=== PATIENT | male | born 1945 | race Caucasian/White ===

== ENCOUNTER → 2018-04-09 09:22 | Outpatient (CLI) | payer MEDICARE, OTHER, SELFPAY ==
[2018-04-09 11:09] LABS: Blood Urea Nitrogen 24 mg/dL (9-20); Calcium 9.5 mg/dL (8.4-10.2); Carbon Dioxide 28 mmol/L (22-32); Chloride 105 mmol/L (98-107); Estimated Glomerular Filt Rate 59.3 mL/min (>60); Glucose 72 mg/dL (80-110); HEMOLYSIS < 15 (0-50); Potassium 4.7 mmol/L (3.4-5.1); Sodium 143 mmol/L (137-145)
== END ==
PROVIDERS: PCP Internal Medicine; Visit Provider Internal Medicine
DX: Z00.00 Encounter for general adult medical examination without abnormal findings (principal); N40.1 Benign prostatic hyperplasia with lower urinary tract symptoms
CPT/HCPCS: 36415; 80048; G0103

== ENCOUNTER 2019-06-11 15:30 | Emergency (ER) | payer MEDICARE, OTHER, SELFPAY ==
[2019-06-11 15:42] VITALS: BP 132/71; PULSE 110; RESP 16; TEMP 37.1; O2SAT 98; BMI 23.6
--- NOTE | 2019-06-11 17:12 | ED.WOUNDLAC ---
HPI - Wound/Laceration <Mary Lang PA-C - Last Filed: 06/11/19 20:48> General Chief Complaint: Wound/Laceration Stated Complaint: CUT FINGERS RIGHT SIDE Time Seen by Provider: 06/11/19 16:46 Source: patient Mode of arrival: Ambulatory Limitations: no limitations History of Present Illness HPI narrative: This 73-year-old gentleman states that he slipped getting out of his truck earlier and pitched forward, trying to avoid hitting his head or face, he caught his fingers and scraped his leg he thinks on the metal guide of his trailer (sheet metal), cutting his arm and fingers, also has a scrape on the right leg. He states he fell on his hands, legs and elbows, came in to have the wounds looked at. He denies any head contusion, LOC, neck pain. He denies any difficulty walking, pain in his legs. He states he has not felt any weakness or pain with moving the fingers and thinks the wounds are superficial. He states he has had a tetanus vaccine in the last 5 years. Review of Systems <Mary Lang PA-C - Last Filed: 06/11/19 20:48> Review of Systems ROS Unobtainable: All systems reviewed & are unremarkable except as noted in HPI and below Patient History <Mary Lang PA-C - Last Filed: 06/11/19 20:48> Medical History (Updated 06/11/19 @ 17:42 by Mary Lang PA-C) No chronic problems (Chronic) Surgical History (Updated 06/11/19 @ 17:37 by Mary Lang PA-C) Status post debridement of bone spur (Resolved) Status post hernia repair (Resolved) Social History Smoking Status: Never smoker Smoking Status: Never smoker alcohol intake frequency: holidays/special occasions only Substance Use Type: does not use Exam <Mary Lang PA-C - Last Filed: 06/11/19 20:48> Narrative Exam Narrative: GENERAL APPEARANCE: Patient sitting comfortably, in no distress. LUNGS: Clear to auscultation bilaterally. HEART: Rate and rhythm regular without murmur, normal S1 and S2, no S3 or S4. DERMATOLOGIC: Right 5th finger tip there is superficial skin maceration in the midline, with small avulsion. Nail appears intact. No active bleeding. Right 4th finger on the border there is a curvilinear 5-6 mm avulsion with a flap, no gap, bleeds minimally when dressing is removed. There are small nonbleeding avulsions on the left hand dorsum and near the left elbow. There are some nonbleeding scabs on the left arias. Wounds cleaned and dressed per nursing MUSCULOSKELETAL: No tenderness over the cervical spine, full range of motion. Normal seated trunk flexion. Full range of motion of right hand fingers, capacity planning manager intact. No tenderness over the right wrist or fingers NEUROLOGIC: Patient is alert and oriented with normal speech and coordination, normal gait Initial Vital Signs Initial Vital Signs: Vital Signs Temperature 98.7 F 06/11/19 15:42 Pulse Rate 110 H 06/11/19 15:42 Respiratory Rate 16 06/11/19 15:42 Blood Pressure 132/71 06/11/19 15:42 Pulse Oximetry 98 06/11/19 15:42 <DO Charisse Crocker Last Filed: 06/11/19 21:04> Initial Vital Signs Initial Vital Signs: Vital Signs Temperature 98.7 F 06/11/19 15:42 Pulse Rate 110 H 06/11/19 15:42 Respiratory Rate 16 06/11/19 15:42 Blood Pressure 132/71 06/11/19 15:42 Pulse Oximetry 98 06/11/19 15:42 Course <Mary Lang PA-C - Last Filed: 06/11/19 20:48> Vital Signs Vital signs: Vital Signs - 8 hr 06/11/19 15:42 06/11/19 18:11 Temperature 98.7 F Pulse Rate 110 H 89 Respiratory Rate 16 16 Blood Pressure 132/71 128/79 Pulse Oximetry 98 98 <DO Charisse Crocker Last Filed: 06/11/19 21:04> Vital Signs Vital signs: Vital Signs - 8 hr 06/11/19 15:42 06/11/19 18:11 Temperature 98.7 F Pulse Rate 110 H 89 Respiratory Rate 16 16 Blood Pressure 132/71 128/79 Pulse Oximetry 98 98 Discharge Plan Departure Patient Disposition: Home Clinical Impression: Avulsion of skin Discharge Date/Time: 06/11/19 18:40 Instructions: DI for Avulsion Laceration (Not Requiring Sutures) Activity Restrictions/Additional Instructions: Please keep these wounds clean and dry. Use nonstick dressing directly on the wounds, then you can add more bulk with gauze or bandages to protect them. As we talked about, you should monitor for any signs of infection such as draining pus, redness, increasing pain, swelling or fever, and see your PCP or return here right away if any. Follow-up with your PCP next week if these wounds are not starting to heal as expected over the next few days. Thank you for your patience with our busy emergency department today Referrals: Walker Altamirano MD [Primary Care Provider] - <Primitivo Cuba, - Last Filed: 06/11/19 21:04> Sign Out Provider Sign Out Attestation: Dr Cuba Co-Sign Statement: I was available for consultation during this patient's emergency department visit. This chart is signed by myself for administrative purposes only. I did not have direct contact with this patient during this visit. They were seen independently by the APC.
[2019-06-11 18:11] VITALS: BP 128/79; PULSE 89; RESP 16; O2SAT 98
== END 2019-06-11 18:40 | disposition home or self-care (01) ==
PROVIDERS: Emergency Provider Internal Medicine; PCP Internal Medicine
DX: S61.316A Laceration without foreign body of right little finger with damage to nail, initial encounter (principal); W18.09XA Striking against other object with subsequent fall, initial encounter
CPT/HCPCS: 99282; 99284

== ENCOUNTER 2020-03-12 17:27 | Emergency (ER) | payer MEDICARE, OTHER, SELFPAY ==
[2020-03-12 17:34] VITALS: BP 161/73; PULSE 92; RESP 14; TEMP 36.5; O2SAT 99; BMI 21.4
--- NOTE | 2020-03-12 17:49 | ED.NEUROSD ---
HPI - Neuro Symptoms/Deficit <ROHAN Monte - Last Filed: 03/12/20 20:11> General Chief Complaint: Neuro Symptoms/Deficit Stated Complaint: Infection/psych/hallucinations Time Seen by Provider: 03/12/20 17:37 Source: patient Mode of arrival: Ambulatory Limitations: no limitations History of Present Illness HPI Narrative: 74yo male with a history of self-diagnosed Parkinson's disease, presents to the ED via EMS for confusion. EMS states that please were called to the house because patient was concerned that there was a transient that he let stay with him that would not come out of the room to eat or use the bathroom. When police arrived at the house, they explained to the patient that it was actually a pair of coveralls not present. Patient states ?I know they told me I was hallucinating and now that make sense but I can't believe that I thought it was a person ?. Patient denies taking any medications. He is alert and oriented to person, place, and time. Patient denies any pain, denies chest pain, shortness of breath, dizziness, fever, difficulty urinating, abdominal pain, nausea, vomiting, diarrhea, cough, or any other concerns. Related Data Allergies Allergy/AdvReac Type Severity Reaction Status Date / Time No Known Drug Allergies Allergy Verified 03/12/20 17:34 Review of Systems <ROHAN Monte - Last Filed: 03/12/20 20:11> Review of Systems Narrative: REVIEW OF SYSTEMS: GENERAL: Denies fever or chills. HENT: No head trauma. EYES: No loss of vision, double vision, eye pain, or irritation. CARDIOVASCULAR: No chest pain or syncope. RESPIRATORY: No shortness of breath or cough. GASTROINTESTINAL: No nausea, vomiting, diarrhea, or constipation. GENITOURINARY: No flank pain or dysuria. MUSCULOSKELETAL: No pain, weakness, or deformities. INTEGUMENTARY: No rash, lesions, or pruritus. NEURO: No numbness, tingling. Patient reports confusion, see HPI. PSYCH: No behavior or mood changes. Hallucinations reported by police, see HPI. Patient History <ROHAN Monte - Last Filed: 03/12/20 20:11> Medical History No chronic problems (Chronic) Surgical History Status post debridement of bone spur (Resolved) Status post hernia repair (Resolved) Social History Smoking Status: Never smoker Smoking Status: Never smoker alcohol intake frequency: holidays/special occasions only Substance Use Type: does not use Exam <ROHAN Monte - Last Filed: 03/12/20 20:11> Initial Vital Signs Initial Vital Signs: Vital Signs Temperature 97.7 F 03/12/20 17:34 Pulse Rate 92 H 03/12/20 17:34 Respiratory Rate 14 03/12/20 17:34 Blood Pressure 161/73 H 03/12/20 17:34 Pulse Oximetry 99 03/12/20 17:34 PHYSICAL EXAMINATION: GENERAL: Well groomed, alert, and cooperative. Answers questions promptly and appropriately. Vital signs noted. HENT: Normocephalic, atraumatic. Ear canals patent. Oral mucosa is pink and moist. EYES: PERRLA,conjunctiva pink, sclera white, no periorbital swelling. CHEST: Normal to inspection and without deformities. CARDIOVASCULAR: S1 and S2 sounds normal. Regular rate and rhythm, no murmurs, clicks, or bruits. RESPIRATORY: Normal respiratory rate, trachea midline, airway patent. No stridor, nasal flaring or accessory muscle use. Lungs are clear in all [place] without wheeze, rhonchi, or crackles. GASTROINTESTINAL: Bowel sounds normoactive. Abdomen is soft and non-tender. No organomegaly. MUSCULOSKELETAL: Normal gait and coordination. Equal tone and mass bilaterally. EXTREMITIES: CMS intact. Moves all extremities. SKIN: Warm, dry, soft, appropriate color for ethnicity. No lesions, rashes, or wounds. NEURO: Alert and Oriented X 3. Good coordination. No ataxia, or sensory deficits, or cognitive issues at this current time. PSYCH: Appropriate affect and mood. <Grey Leonardo DO - Last Filed: 03/13/20 01:56> Initial Vital Signs Initial Vital Signs: Vital Signs Temperature 97.7 F 03/12/20 17:34 Pulse Rate 92 H 03/12/20 17:34 Respiratory Rate 14 03/12/20 17:34 Blood Pressure 161/73 H 03/12/20 17:34 Pulse Oximetry 99 03/12/20 17:34 Course <Stefany LeongROHAN barboza - Last Filed: 03/12/20 20:11> Course Course Narrative: Patient continues to insert questions appropriately, son at bedside states father's acting normally. Patient was given 1 g of ceftriaxone in the emergency department to treat UTI. Continues to be awake and alert and oriented upon discharge. Orders Ordered: ED Orders 03/12/20 17:47 EKG-12 Lead Stat 03/12/20 17:50 Acetaminophen Stat Complete Blood Count AUTO DIFF Stat Comprehensive Metabolic Panel Stat Ethanol (ETOH) Stat Lactate (Lactic Acid) Stat Partial Thromboplastin Time Stat Prolactin Stat Prothrombin Time INR Stat Salicylate Stat Thyroid Stimulating Hormone Stat 03/12/20 17:54 Urinalysis and Microscopic Stat Urine Culture Stat Urine Drug Screen, Rapid Stat 03/12/20 18:14 XR chest 1V Stat Discontinued Medications Sodium Chloride (Normal Saline 0.9%) 1,000 mls @ 150 mls/hr IV CONT ZAINA Last Infusion: 03/12/20 19:32 Dose: 0 mls/hr Documented by: Admin: 03/12/20 17:53 Dose: 150 mls/hr Documented by: HUGH Ceftriaxone Sodium 1,000 mg/ (Dextrose) 50 mls @ 100 mls/hr IV NOW ONE Stop: 03/12/20 18:31 Last Admin: 03/12/20 18:44 Dose: Not Given Documented by: HUGH Ceftriaxone Sodium/Dextrose (Rocephin) 1 gm in 50 mls @ 100 mls/hr IV NOW ONE Stop: 03/12/20 19:12 Last Infusion: 03/12/20 19:32 Dose: 0 mls/hr Documented by: Admin: 03/12/20 18:46 Dose: 100 mls/hr Documented by: VIVEK Vital Signs Vital signs: Vital Signs - 8 hr 03/12/20 18:06 03/12/20 18:09 03/12/20 18:30 Pulse Rate 84 90 85 Respiratory Rate 17 20 20 Blood Pressure 169/70 H 153/70 H Pulse Oximetry 99 100 100 03/12/20 19:00 03/12/20 19:30 Pulse Rate 85 Respiratory Rate 17 Blood Pressure 164/78 H 156/73 H Pulse Oximetry 99 <DO Charisse Turner Last Filed: 03/13/20 01:56> Orders Ordered: ED Orders 03/12/20 17:47 EKG-12 Lead Stat 03/12/20 17:50 Acetaminophen Stat Complete Blood Count AUTO DIFF Stat Comprehensive Metabolic Panel Stat Ethanol (ETOH) Stat Lactate (Lactic Acid) Stat Partial Thromboplastin Time Stat Prolactin Stat Prothrombin Time INR Stat Salicylate Stat Thyroid Stimulating Hormone Stat 03/12/20 17:54 Urinalysis and Microscopic Stat Urine Culture Stat Urine Drug Screen, Rapid Stat 03/12/20 18:14 XR chest 1V Stat Discontinued Medications Sodium Chloride (Normal Saline 0.9%) 1,000 mls @ 150 mls/hr IV CONT ZAINA Last Infusion: 03/12/20 19:32 Dose: 0 mls/hr Documented by: Admin: 03/12/20 17:53 Dose: 150 mls/hr Documented by: HUGH Ceftriaxone Sodium 1,000 mg/ (Dextrose) 50 mls @ 100 mls/hr IV NOW ONE Stop: 03/12/20 18:31 Last Admin: 03/12/20 18:44 Dose: Not Given Documented by: HUGH Ceftriaxone Sodium/Dextrose (Rocephin) 1 gm in 50 mls @ 100 mls/hr IV NOW ONE Stop: 03/12/20 19:12 Last Infusion: 03/12/20 19:32 Dose: 0 mls/hr Documented by: Admin: 03/12/20 18:46 Dose: 100 mls/hr Documented by: VIVEK Vital Signs Vital signs: Vital Signs - 8 hr 03/12/20 18:06 03/12/20 18:09 03/12/20 18:30 Pulse Rate 84 90 85 Respiratory Rate 17 20 20 Blood Pressure 169/70 H 153/70 H Pulse Oximetry 99 100 100 03/12/20 19:00 03/12/20 19:30 Pulse Rate 85 Respiratory Rate 17 Blood Pressure 164/78 H 156/73 H Pulse Oximetry 99 MDM - Neuro Symptoms/Deficit <ROHAN Monte - Last Filed: 03/12/20 20:11> Medical Records Attestation: I reviewed the patient's medical records. Lab Data Attestation: I reviewed the patient's lab results. Result diagrams: 03/12/20 17:50 03/12/20 17:50 Labs: Lab Results 03/12/20 03/12/20 03/12/20 Range/Units 17:50 17:50 17:50 WBC 7.2 (4.5-11.0) X10^3/uL RBC 4.39 L (4.5-5.9) X10^6/uL Hgb 13.8 (13.5-17.5) g/dL Hct 40.0 L (41-53) % MCV 91.2 (80-100) fL MCH 31.4 (26-34) PG MCHC 34.4 (30-36) % RDW 13.3 (11.6-14.8) % Plt Count 193 (150-400) X10^3/uL Neut % (Auto) 78.0 H (50-75) % Lymph % (Auto) 17.2 L (25-40) % [place] % (Auto) 3.9 (3-14) % Eos % (Auto) 0.8 L (2-4) % Baso % (Auto) 0.1 (0-2) % Neut # (Auto) 5600 (9456-6373) /uL Lymph # (Auto) 1200 (9234-2476) /uL [place] # (Auto) 300 (0-900) /uL Eos # (Auto) 100 (0-450) /uL Baso # (Auto) 0 (0-100) /uL PT 12.0 (10.1-12.7) SECONDS INR 1.0 (0.9-1.3) APTT 34 (26.4-36.2) SECONDS Sodium 140 (137-145) mmol/L Potassium 4.0 (3.4-5.1) mmol/L Chloride 106 (98-107) mmol/L Carbon Dioxide 25 (22-32) mmol/L BUN 24 H (9-20) mg/dL Creatinine 1.11 (0.66-1.25) mg/dL Estimated GFR > 60.0 (>60) mL/min BUN/Creatinine Ratio 21.6 (6-22) Glucose 98 (80-110) mg/dL Lactate (0.7-2.1) mmol/L Calcium 9.3 (8.4-10.2) mg/dL Total Bilirubin 0.9 (0.2-1.3) mg/dL AST 32 (17-59) IU/L ALT 25 (<50) IU/L Alkaline Phosphatase 86 (38-126) U/L Total Protein 7.5 (6.3-8.2) g/dL Albumin 4.4 (3.5-5.0) g/dL Globulin 3.1 (1.7-4.1) g/dL Albumin/Globulin Ratio 1.4 (1.0-2.8) TSH (0.47-4.68) uIU/mL Prolactin 13.1 (3.7-17.9) ng/mL Urine Color Urine Appearance Urine pH (4.5-8.0) Ur Specific [place] (1.000-1.035) Urine Protein (Negative) Urine Glucose (UA) (Negative) g/dL Urine Ketones (NEGATIVE) Urine Occult Blood (Negative) Urine Nitrate (Negative) Urine Bilirubin (NEGATIVE) Urine Urobilinogen (0.2) E.U./dL Ur Leukocyte Esterase (NEGATIVE) Urine RBC (0-5/HPF) Urine WBC (0-5/HPF) Ur Squamous Epith Cells (0-5/HPF) Urine Bacteria (None) Ur Culture Indicated? Salicylates < 1.0 (<20) mg/dL U Opiates 300ng/mL cut (Negative) Ur Oxycodone Screen (Negative) Urine Methadone Screen (Negative) Acetaminophen < 10 L (10-30) ug/mL Ur Barbiturates Screen (Negative) U Tricyclic Antidepress (Negative) Ur Phencyclidine Scrn (Negative) Ur Amphetamines Screen (Negative) U Methamphetamines Scrn (Negative) Ur MDMA Scrn (Ecstasy) (Negative) U Benzodiazepines Scrn (Negative) Urine Cocaine Screen (Negative) U Marijuana (THC) Screen (Negative) Ethyl Alcohol < 10 ( - 10) mg/dL 03/12/20 03/12/20 03/12/20 Range/Units 17:50 17:50 17:54 WBC (4.5-11.0) X10^3/uL RBC (4.5-5.9) X10^6/uL Hgb (13.5-17.5) g/dL Hct (41-53) % MCV (80-100) fL MCH (26-34) PG MCHC (30-36) % RDW (11.6-14.8) % Plt Count (150-400) X10^3/uL Neut % (Auto) (50-75) % Lymph % (Auto) (25-40) % [place] % (Auto) (3-14) % Eos % (Auto) (2-4) % Baso % (Auto) (0-2) % Neut # (Auto) (9543-9611) /uL Lymph # (Auto) (8722-9964) /uL [place] # (Auto) (0-900) /uL Eos # (Auto) (0-450) /uL Baso # (Auto) (0-100) /uL PT (10.1-12.7) SECONDS INR (0.9-1.3) APTT (26.4-36.2) SECONDS Sodium (137-145) mmol/L Potassium (3.4-5.1) mmol/L Chloride (98-107) mmol/L Carbon Dioxide (22-32) mmol/L BUN (9-20) mg/dL Creatinine (0.66-1.25) mg/dL Estimated GFR (>60) mL/min BUN/Creatinine Ratio (6-22) Glucose (80-110) mg/dL Lactate 1.0 (0.7-2.1) mmol/L Calcium (8.4-10.2) mg/dL Total Bilirubin (0.2-1.3) mg/dL AST (17-59) IU/L ALT (<50) IU/L Alkaline Phosphatase (38-126) U/L Total Protein (6.3-8.2) g/dL Albumin (3.5-5.0) g/dL Globulin (1.7-4.1) g/dL Albumin/Globulin Ratio (1.0-2.8) TSH 1.84 (0.47-4.68) uIU/mL Prolactin (3.7-17.9) ng/mL Urine Color Yellow Urine Appearance Cloudy Urine pH 5.5 (4.5-8.0) Ur Specific [place] 1.025 (1.000-1.035) Urine Protein Negative (Negative) Urine Glucose (UA) Negative (Negative) g/dL Urine Ketones Negative (NEGATIVE) Urine Occult Blood Trace-intact (Negative) Urine Nitrate Negative (Negative) Urine Bilirubin Negative (NEGATIVE) Urine Urobilinogen 0.2 (0.2) E.U./dL Ur Leukocyte Esterase 2+ H (NEGATIVE) Urine RBC None seen (0-5/HPF) Urine WBC 30-100/hpf H (0-5/HPF) Ur Squamous Epith Cells 0-1 /hpf (0-5/HPF) Urine Bacteria Many (>30) H (None) Ur Culture Indicated? Specimen cultured Salicylates (<20) mg/dL U Opiates 300ng/mL cut (Negative) Ur Oxycodone Screen (Negative) Urine Methadone Screen (Negative) Acetaminophen (10-30) ug/mL Ur Barbiturates Screen (Negative) U Tricyclic Antidepress (Negative) Ur Phencyclidine Scrn (Negative) Ur Amphetamines Screen (Negative) U Methamphetamines Scrn (Negative) Ur MDMA Scrn (Ecstasy) (Negative) U Benzodiazepines Scrn (Negative) Urine Cocaine Screen (Negative) U Marijuana (THC) Screen (Negative) Ethyl Alcohol ( - 10) mg/dL 03/12/20 Range/Units 17:54 WBC (4.5-11.0) X10^3/uL RBC (4.5-5.9) X10^6/uL Hgb (13.5-17.5) g/dL Hct (41-53) % MCV (80-100) fL MCH (26-34) PG MCHC (30-36) % RDW (11.6-14.8) % Plt Count (150-400) X10^3/uL Neut % (Auto) (50-75) % Lymph % (Auto) (25-40) % [place] % (Auto) (3-14) % Eos % (Auto) (2-4) % Baso % (Auto) (0-2) % Neut # (Auto) (9612-9318) /uL Lymph # (Auto) (1555-1854) /uL [place] # (Auto) (0-900) /uL Eos # (Auto) (0-450) /uL Baso # (Auto) (0-100) /uL PT (10.1-12.7) SECONDS INR (0.9-1.3) APTT (26.4-36.2) SECONDS Sodium (137-145) mmol/L Potassium (3.4-5.1) mmol/L Chloride (98-107) mmol/L Carbon Dioxide (22-32) mmol/L BUN (9-20) mg/dL Creatinine (0.66-1.25) mg/dL Estimated GFR (>60) mL/min BUN/Creatinine Ratio (6-22) Glucose (80-110) mg/dL Lactate (0.7-2.1) mmol/L Calcium (8.4-10.2) mg/dL Total Bilirubin (0.2-1.3) mg/dL AST (17-59) IU/L ALT (<50) IU/L Alkaline Phosphatase (38-126) U/L Total Protein (6.3-8.2) g/dL Albumin (3.5-5.0) g/dL Globulin (1.7-4.1) g/dL Albumin/Globulin Ratio (1.0-2.8) TSH (0.47-4.68) uIU/mL Prolactin (3.7-17.9) ng/mL Urine Color Urine Appearance Urine pH (4.5-8.0) Ur Specific [place] (1.000-1.035) Urine Protein (Negative) Urine Glucose (UA) (Negative) g/dL Urine Ketones (NEGATIVE) Urine Occult Blood (Negative) Urine Nitrate (Negative) Urine Bilirubin (NEGATIVE) Urine Urobilinogen (0.2) E.U./dL Ur Leukocyte Esterase (NEGATIVE) Urine RBC (0-5/HPF) Urine WBC (0-5/HPF) Ur Squamous Epith Cells (0-5/HPF) Urine Bacteria (None) Ur Culture Indicated? Salicylates (<20) mg/dL U Opiates 300ng/mL cut Negative (Negative) Ur Oxycodone Screen Negative (Negative) Urine Methadone Screen Negative (Negative) Acetaminophen (10-30) ug/mL Ur Barbiturates Screen Negative (Negative) U Tricyclic Antidepress Negative (Negative) Ur Phencyclidine Scrn Negative (Negative) Ur Amphetamines Screen Negative (Negative) U Methamphetamines Scrn Negative (Negative) Ur MDMA Scrn (Ecstasy) Negative (Negative) U Benzodiazepines Scrn Negative (Negative) Urine Cocaine Screen Negative (Negative) U Marijuana (THC) Screen Negative (Negative) Ethyl Alcohol ( - 10) mg/dL Urine Dip Bedside Urine Glucose Negative Bedside Urine Bilirubin - Negative Bedside Urine Ketone +/- 5 Urine Specific [place] 1.025 Bedside Urine Occult Blood - Negative Bedside Urine pH 6.0 Bedside Urine Protein +/- 15 Bedside Urine Urobilinogen - Negative Bedside Urine Nitrite - Negative Bedside Urine Leukocytes +++ 500 Esterase Imaging Data Chest x-ray: Radiologist's Impression: [address] [address] XRay Report Signed Patient: Jj Ennis JMR#: [id number] : 5Acct:[id number] Age/Sex: 74 / MDate of Service: 03/12/20 Loc: ED Accession Number: [id number] Procedure: XR chest 1V Ordering Provider: Stefany Sinha PROCEDURE: XR CHEST 1V INDICATIONS: Wheezes heard on lung exam TECHNIQUE: One view of the chest was acquired. COMPARISON: None. FINDINGS: Surgical changes and devices: None. Lungs and pleura: Lungs are clear. No pleural effusions or pneumothorax. Mediastinum: Mediastinal contours appear normal. Heart size is normal. Bones and chest wall: No suspicious bony lesions. Overlying soft tissues appear unremarkable. IMPRESSION: Normal for age, source of current wheezes symptoms is not seen. Dictated by: Calderon Roy M.D. on 03/12/2020 at 19:00 Approved by: Calderon Roy M.D. on 03/12/2020 at 19:00 ECG Data Interpretation: 1758: Sinus rhythm, rate 89, IL interval 202, QTC 438. No ST elevation or ST depression. T-wave inversion noted in V1. EKG also viewed by Dr. Multani per protocol. [facility] Narrative Medical decision making narrative: 74-year-old male with history of self-diagnosed Parkinson's presents to ED for an episode of confusion. Patient is hemodynamically stable, alert and oriented upon arrival. Denies any complaints such as pain. No signs of infection, laboratory work is within normal limits, patient is afebrile non tachycardic. Exam is rather benign, no abdominal tenderness, no adventitious lung sounds. X-ray negative for any cardiopulmonary etiology, EKG non-remarkable for acute changes. Laboratory work, a urine tox, acetaminophen, and ascetic acid negative for any concerning overdose. I suspect patient's symptoms may be caused by urinary tract infection and bacteria seen in urinalysis. Patient was given 1 g of IV ceftriaxone to treat infection given patient is experiencing intermittent confusion and lives at home alone. Is possible that has Parkinson's may also be contributing. However, less likely to be the most cause of acute change. No signs of systemic infection. Patient was encouraged to follow up with his primary care provider in the next week. Son at bedside to take patient home and ensure follow-up. Return precautions given, patient and son agree to plan of care. <Grey Leonardo, DO - Last Filed: 03/13/20 01:56> Lab Data Labs: Lab Results 03/12/20 03/12/20 03/12/20 Range/Units 17:50 17:50 17:50 WBC 7.2 (4.5-11.0) X10^3/uL RBC 4.39 L (4.5-5.9) X10^6/uL Hgb 13.8 (13.5-17.5) g/dL Hct 40.0 L (41-53) % MCV 91.2 (80-100) fL MCH 31.4 (26-34) PG MCHC 34.4 (30-36) % RDW 13.3 (11.6-14.8) % Plt Count 193 (150-400) X10^3/uL Neut % (Auto) 78.0 H (50-75) % Lymph % (Auto) 17.2 L (25-40) % [place] % (Auto) 3.9 (3-14) % Eos % (Auto) 0.8 L (2-4) % Baso % (Auto) 0.1 (0-2) % Neut # (Auto) 5600 (8413-1591) /uL Lymph # (Auto) 1200 (5562-0765) /uL [place] # (Auto) 300 (0-900) /uL Eos # (Auto) 100 (0-450) /uL Baso # (Auto) 0 (0-100) /uL PT 12.0 (10.1-12.7) SECONDS INR 1.0 (0.9-1.3) APTT 34 (26.4-36.2) SECONDS Sodium 140 (137-145) mmol/L Potassium 4.0 (3.4-5.1) mmol/L Chloride 106 (98-107) mmol/L Carbon Dioxide 25 (22-32) mmol/L BUN 24 H (9-20) mg/dL Creatinine 1.11 (0.66-1.25) mg/dL Estimated GFR > 60.0 (>60) mL/min BUN/Creatinine Ratio 21.6 (6-22) Glucose 98 (80-110) mg/dL Lactate (0.7-2.1) mmol/L Calcium 9.3 (8.4-10.2) mg/dL Total Bilirubin 0.9 (0.2-1.3) mg/dL AST 32 (17-59) IU/L ALT 25 (<50) IU/L Alkaline Phosphatase 86 (38-126) U/L Total Protein 7.5 (6.3-8.2) g/dL Albumin 4.4 (3.5-5.0) g/dL Globulin 3.1 (1.7-4.1) g/dL Albumin/Globulin Ratio 1.4 (1.0-2.8) TSH (0.47-4.68) uIU/mL Prolactin 13.1 (3.7-17.9) ng/mL Urine Color Urine Appearance Urine pH (4.5-8.0) Ur Specific [place] (1.000-1.035) Urine Protein (Negative) Urine Glucose (UA) (Negative) g/dL Urine Ketones (NEGATIVE) Urine Occult Blood (Negative) Urine Nitrate (Negative) Urine Bilirubin (NEGATIVE) Urine Urobilinogen (0.2) E.U./dL Ur Leukocyte Esterase (NEGATIVE) Urine RBC (0-5/HPF) Urine WBC (0-5/HPF) Ur Squamous Epith Cells (0-5/HPF) Urine Bacteria (None) Ur Culture Indicated? Salicylates < 1.0 (<20) mg/dL U Opiates 300ng/mL cut (Negative) Ur Oxycodone Screen (Negative) Urine Methadone Screen (Negative) Acetaminophen < 10 L (10-30) ug/mL Ur Barbiturates Screen (Negative) U Tricyclic Antidepress (Negative) Ur Phencyclidine Scrn (Negative) Ur Amphetamines Screen (Negative) U Methamphetamines Scrn (Negative) Ur MDMA Scrn (Ecstasy) (Negative) U Benzodiazepines Scrn (Negative) Urine Cocaine Screen (Negative) U Marijuana (THC) Screen (Negative) Ethyl Alcohol < 10 ( - 10) mg/dL 09/05/20 09/05/20 09/05/20 Range/Units 17:50 17:50 17:54 WBC (4.5-11.0) X10^3/uL RBC (4.5-5.9) X10^6/uL Hgb (13.5-17.5) g/dL Hct (41-53) % MCV (80-100) fL MCH (26-34) PG MCHC (30-36) % RDW (11.6-14.8) % Plt Count (150-400) X10^3/uL Neut % (Auto) (50-75) % Lymph % (Auto) (25-40) % [place] % (Auto) (3-14) % Eos % (Auto) (2-4) % Baso % (Auto) (0-2) % Neut # (Auto) (1989-8549) /uL Lymph # (Auto) (9369-4980) /uL [place] # (Auto) (0-900) /uL Eos # (Auto) (0-450) /uL Baso # (Auto) (0-100) /uL PT (10.1-12.7) SECONDS INR (0.9-1.3) APTT (26.4-36.2) SECONDS Sodium (137-145) mmol/L Potassium (3.4-5.1) mmol/L Chloride (98-107) mmol/L Carbon Dioxide (22-32) mmol/L BUN (9-20) mg/dL Creatinine (0.66-1.25) mg/dL Estimated GFR (>60) mL/min BUN/Creatinine Ratio (6-22) Glucose (80-110) mg/dL Lactate 1.0 (0.7-2.1) mmol/L Calcium (8.4-10.2) mg/dL Total Bilirubin (0.2-1.3) mg/dL AST (17-59) IU/L ALT (<50) IU/L Alkaline Phosphatase (38-126) U/L Total Protein (6.3-8.2) g/dL Albumin (3.5-5.0) g/dL Globulin (1.7-4.1) g/dL Albumin/Globulin Ratio (1.0-2.8) TSH 1.84 (0.47-4.68) uIU/mL Prolactin (3.7-17.9) ng/mL Urine Color Yellow Urine Appearance Cloudy Urine pH 5.5 (4.5-8.0) Ur Specific [place] 1.025 (1.000-1.035) Urine Protein Negative (Negative) Urine Glucose (UA) Negative (Negative) g/dL Urine Ketones Negative (NEGATIVE) Urine Occult Blood Trace-intact (Negative) Urine Nitrate Negative (Negative) Urine Bilirubin Negative (NEGATIVE) Urine Urobilinogen 0.2 (0.2) E.U./dL Ur Leukocyte Esterase 2+ H (NEGATIVE) Urine RBC None seen (0-5/HPF) Urine WBC 30-100/hpf H (0-5/HPF) Ur Squamous Epith Cells 0-1 /hpf (0-5/HPF) Urine Bacteria Many (>30) H (None) Ur Culture Indicated? Specimen cultured Salicylates (<20) mg/dL U Opiates 300ng/mL cut (Negative) Ur Oxycodone Screen (Negative) Urine Methadone Screen (Negative) Acetaminophen (10-30) ug/mL Ur Barbiturates Screen (Negative) U Tricyclic Antidepress (Negative) Ur Phencyclidine Scrn (Negative) Ur Amphetamines Screen (Negative) U Methamphetamines Scrn (Negative) Ur MDMA Scrn (Ecstasy) (Negative) U Benzodiazepines Scrn (Negative) Urine Cocaine Screen (Negative) U Marijuana (THC) Screen (Negative) Ethyl Alcohol ( - 10) mg/dL 03/12/20 Range/Units 17:54 WBC (4.5-11.0) X10^3/uL RBC (4.5-5.9) X10^6/uL Hgb (13.5-17.5) g/dL Hct (41-53) % MCV (80-100) fL MCH (26-34) PG MCHC (30-36) % RDW (11.6-14.8) % Plt Count (150-400) X10^3/uL Neut % (Auto) (50-75) % Lymph % (Auto) (25-40) % [place] % (Auto) (3-14) % Eos % (Auto) (2-4) % Baso % (Auto) (0-2) % Neut # (Auto) (5898-8705) /uL Lymph # (Auto) (7669-6660) /uL [place] # (Auto) (0-900) /uL Eos # (Auto) (0-450) /uL Baso # (Auto) (0-100) /uL PT (10.1-12.7) SECONDS INR (0.9-1.3) APTT (26.4-36.2) SECONDS Sodium (137-145) mmol/L Potassium (3.4-5.1) mmol/L Chloride (98-107) mmol/L Carbon Dioxide (22-32) mmol/L BUN (9-20) mg/dL Creatinine (0.66-1.25) mg/dL Estimated GFR (>60) mL/min BUN/Creatinine Ratio (6-22) Glucose (80-110) mg/dL Lactate (0.7-2.1) mmol/L Calcium (8.4-10.2) mg/dL Total Bilirubin (0.2-1.3) mg/dL AST (17-59) IU/L ALT (<50) IU/L Alkaline Phosphatase (38-126) U/L Total Protein (6.3-8.2) g/dL Albumin (3.5-5.0) g/dL Globulin (1.7-4.1) g/dL Albumin/Globulin Ratio (1.0-2.8) TSH (0.47-4.68) uIU/mL Prolactin (3.7-17.9) ng/mL Urine Color Urine Appearance Urine pH (4.5-8.0) Ur Specific [place] (1.000-1.035) Urine Protein (Negative) Urine Glucose (UA) (Negative) g/dL Urine Ketones (NEGATIVE) Urine Occult Blood (Negative) Urine Nitrate (Negative) Urine Bilirubin (NEGATIVE) Urine Urobilinogen (0.2) E.U./dL Ur Leukocyte Esterase (NEGATIVE) Urine RBC (0-5/HPF) Urine WBC (0-5/HPF) Ur Squamous Epith Cells (0-5/HPF) Urine Bacteria (None) Ur Culture Indicated? Salicylates (<20) mg/dL U Opiates 300ng/mL cut Negative (Negative) Ur Oxycodone Screen Negative (Negative) Urine Methadone Screen Negative (Negative) Acetaminophen (10-30) ug/mL Ur Barbiturates Screen Negative (Negative) U Tricyclic Antidepress Negative (Negative) Ur Phencyclidine Scrn Negative (Negative) Ur Amphetamines Screen Negative (Negative) U Methamphetamines Scrn Negative (Negative) Ur MDMA Scrn (Ecstasy) Negative (Negative) U Benzodiazepines Scrn Negative (Negative) Urine Cocaine Screen Negative (Negative) U Marijuana (THC) Screen Negative (Negative) Ethyl Alcohol ( - 10) mg/dL Urine Dip Bedside Urine Glucose Negative Bedside Urine Bilirubin - Negative Bedside Urine Ketone +/- 5 Urine Specific [place] 1.025 Bedside Urine Occult Blood - Negative Bedside Urine pH 6.0 Bedside Urine Protein +/- 15 Bedside Urine Urobilinogen - Negative Bedside Urine Nitrite - Negative Bedside Urine Leukocytes +++ 500 Esterase Discharge Plan Departure Patient Disposition: Home Clinical Impression: Urinary tract infection Qualifiers: Urinary tract infection type: acute cystitis Hematuria presence: without hematuria Qualified Code(s): N30.00 - Acute cystitis without hematuria Discharge Date/Time: 03/12/20 19:50 Instructions: DI for Urinary Tract Infection (UTI) Activity Restrictions/Additional Instructions: Thank you for entrusting me with your care today. As discussed, your laboratory work and chest x-ray is non-remarkable. However, your urine studies indicate infection. We have given you a dose of ceftriaxone in your IV which will resolve this infection. If additional medication you will receive a call in 2 days from us. Please follow-up with your primary care provider in 1-2 weeks for further evaluation and testing. Return emergency department for any new or worsening symptoms such as high fevers, increased confusion, in controllable vomiting, weakness, or any other concerns. Referrals: Walker Altamirano MD [Primary Care Provider] - <Grey Leonardo DO - Last Filed: 03/13/20 01:56> [facility]: I was immediately available in the department for consultation. This documentation has been reviewed and I agree with assessment and plan. Supervised by Grey Leonardo DO
[2020-03-12] MEDS: SODIUM CHLORIDE 0.9% 1,000 ML 150 ML IV (17:53)
[2020-03-12 18:06] VITALS: BP 169/70; PULSE 84; RESP 17; O2SAT 99
[2020-03-12 18:09] VITALS: PULSE 90; RESP 20; O2SAT 100
[2020-03-12 18:10] LABS: RBC Urine None Seen (0-5/HPF)
--- NOTE | 2020-03-12 18:13 | PC.NURSE ---
Pt oriented x3, aware that he was hallucinating at home, after police talked with him. History of self diagnosed parkinsons, with slow but steady gait.
--- NOTE | 2020-03-12 18:14 | DI.RAD.S_ITS ---
PROCEDURE: XR CHEST 1V INDICATIONS: Wheezes heard on lung exam TECHNIQUE: One view of the chest was acquired. COMPARISON: None. FINDINGS: Surgical changes and devices: None. Lungs and pleura: Lungs are clear. No pleural effusions or pneumothorax. Mediastinum: Mediastinal contours appear normal. Heart size is normal. Bones and chest wall: No suspicious bony lesions. Overlying soft tissues appear unremarkable. IMPRESSION: Normal for age, source of current wheezes symptoms is not seen. Dictated by: Calderon Roy M.D. on 03/12/2020 at 19:00 Approved by: Calderon Roy M.D. on 03/12/2020 at 19:00
[2020-03-12 18:15] LABS: Appearance Urine UA CLOUDY; Bilirubin Urine UA NEGATIVE (NEGATIVE); Color Urine UA YELLOW; Glucose Urine UA NEGATIVE (Negative); Ketones Urine UA NEGATIVE (NEGATIVE); Leukocyte Esterase Urine UA 2+ (NEGATIVE); Nitrite Urine UA NEGATIVE (Negative); Occult Blood Urine UA TRACE-INTACT (Negative); Protein Urine UA NEGATIVE (Negative); Specific Gravity Urine UA 1.025 (1.000-1.035); UR Morphine/Opiate cutoff 300 Negative (Negative); Ur Creatinine Normal (Normal); Ur Specific Gravity Normal (Normal); Urine Amphetamines Negative (Negative); Urine Barbiturates Negative (Negative); Urine Benzodiazepines Negative (Negative); Urine Cocaine Negative (Negative); Urine MDMA Negative (Negative); Urine Methadone Negative (Negative); Urine Methamphetamines Negative (Negative); Urine Oxycodone Negative (Negative); Urine Phencyclidine Negative (Negative); Urine Tetrahydrocannabinol Negative (Negative); Urine Tricyclic Antidepressant Negative (Negative); Urine pH Normal (Normal); Urobilinogen Urine UA 0.2 E.U./dL (0.2); pH Urine UA 5.5 (4.5-8.0)
[2020-03-12 18:23] LABS: Add Manual Diff / Slide Review NO; Basophils Absolute Auto 0 /uL (0-100); Basophils Percent Auto 0.1 % (0-2); Eosinophils Absolute Auto 100 /uL (0-450); Eosinophils Percent Auto 0.8 % (2-4); Hemoglobin 13.8 g/dL (13.5-17.5); Lymphocytes Absolute Auto 1200 /uL (1100-4500); Lymphocytes Percent Auto 17.2 % (25-40); Mean Corpuscular HGB Conc 34.4 % (30-36); Mean Corpuscular Hemoglobin 31.4 PG (26-34); Mean Corpuscular Volume 91.2 fL (80-100); Monocytes Absolute Auto 300 /uL (0-900); Monocytes Percent Auto 3.9 % (3-14); Neutrophils Absolute Auto 5600 /uL (1500-7000); Platelet Count 193 X10^3/uL (150-400); Red Blood Cell Count 4.39 X10^6/uL (4.5-5.9); Red Cell Distribution Width 13.3 % (11.6-14.8); White Blood Cell Count 7.2 X10^3/uL (4.5-11.0)
[2020-03-12 18:24] LABS: Bacteria Urine Many (>30); Culture Indicated Urine Specimen Cultured; Squamous Epithelial Cell Urine 0-1 /HPF (0-5/HPF); WBC Urine 30-100/HPF (0-5/HPF)
[2020-03-12 18:28] LABS: Acetaminophen < 10 ug/mL (10-30); Alanine Aminotransferase 25 IU/L (<50); Albumin 4.4 g/dL (3.5-5.0); Albumin Globulin Ratio 1.4 (1.0-2.8); Alkaline Phosphatase 86 U/L (38-126); Aspartate Aminotransferase 32 IU/L (17-59); BUN Creatinine Ratio 21.6 (6-22); Bilirubin Total 0.9 mg/dL (0.2-1.3); Blood Urea Nitrogen 24 mg/dL (9-20); Calcium 9.3 mg/dL (8.4-10.2); Carbon Dioxide 25 mmol/L (22-32); Chloride 106 mmol/L (98-107); Estimated Glomerular Filt Rate > 60.0 mL/min (>60); Ethanol (ETOH) < 10 mg/dL; Globulin 3.1 g/dL (1.7-4.1); Glucose 98 mg/dL (80-110); HEMOLYSIS < 15 (0-50); Salicylate < 1.0 mg/dL (<20); Sodium 140 mmol/L (137-145); Total Protein 7.5 g/dL (6.3-8.2)
[2020-03-12 18:29] LABS: PTT Partial Thromboplastin Tim 34 SECONDS (26.4-36.2)
[2020-03-12 18:30] VITALS: BP 153/70; PULSE 85; RESP 20; O2SAT 100
[2020-03-12 18:44] LABS: Prolactin 13.1 ng/mL (3.7-17.9)
[2020-03-12] MEDS: CEFTRIAXONE 1 GM/50 ML FROZ.PIGGY IV (18:46)
[2020-03-12 19:00] VITALS: BP 164/78; PULSE 85; RESP 17; O2SAT 99
[2020-03-12 19:19] LABS: Thyroid Stimulating Hormone 1.84 uIU/mL (0.47-4.68)
[2020-03-12 19:30] VITALS: BP 156/73
== END 2020-03-12 19:50 | disposition home or self-care (01) ==
PROVIDERS: Emergency Provider Nurse Practitioner; PCP Internal Medicine
DX: N30.00 Acute cystitis without hematuria (principal); R44.3 Hallucinations, unspecified
CPT/HCPCS: 36415; 71045; 80053; 80305; 80320; 80329; 81001; 81003; 83605; 84146; 84443; 85025; 85610; 85730; 87086; 93005; 96361; 96365; 99284; G0480

== ENCOUNTER → 2020-03-24 15:57 | Outpatient (CLI) | payer MEDICARE, OTHER, SELFPAY ==
--- NOTE | 2020-03-24 16:01 | DI.MRI.S_ITS ---
PROCEDURE: MR HEAD/BRAIN WO/W CON INDICATIONS: Disorientation, confusion TECHNIQUE: Noncontrast axial T1 spin echo, axial T2 fast spin echo, sagittal and axial FLAIR, coronal T2 fast spin echo, axial gradient echo, axial diffusion and ADC through the brain. After the administration of contrast, axial and coronal T1 spin echo with fat saturation through the brain. COMPARISON: None. FINDINGS: Image quality: Limited. The patient could not lay flat and the standard head coil could not be used. CSF spaces: Basal cisterns are patent. No extra-axial fluid collections. Ventricles are normal in size and shape. Brain: No midline shift. No intracranial bleeds or masses. No abnormal intracranial enhancement. There is cerebral volume loss for age. There is periventricular white matter chronic small vessel ischemic change. The brainstem appears normal. Diffusion-weighted images demonstrate no acute ischemic insults. No chronic ischemic insults. Normal intravascular flow voids are present. Skull and face: Calvarial marrow is normal in signal. Orbits appear normal. Note is made of bilateral lens replacements. Sinuses: Sinuses and mastoids appear clear. Moderate rightward nasal septal deviation is incidentally noted. IMPRESSION: Limited study demonstrating no significant intracranial abnormality for age. Note is made of age-appropriate brain parenchymal volume loss and chronic small vessel ischemic changes. No findings of acute or subacute infarction can be seen. No masses or abnormal enhancement can be seen. Dictated by: Alex Kaplan M.D. on 03/24/2020 at 18:02 Approved by: Alex Kaplan M.D. on 03/24/2020 at 18:03
== END ==
PROVIDERS: PCP Internal Medicine; Referring Provider Physician Assistant; Visit Provider Physician Assistant
DX: R41.0 Disorientation, unspecified (principal); R44.3 Hallucinations, unspecified; G25.0 Essential tremor
CPT/HCPCS: 70553

== ENCOUNTER → 2020-05-10 15:09 | Outpatient (ROUT) | payer MEDICARE, OTHER, SELFPAY ==
[2020-05-10 15:13] LABS: Bacteria Urine None Seen
[2020-05-10 16:56] LABS: Mucus Urine 1+ (Negative); RBC Urine 1-5/HPF (0-5/HPF); Squamous Epithelial Cell Urine 1-5 /HPF (0-5/HPF); WBC Urine 1-5/HPF (0-5/HPF)
== END ==
PROVIDERS: PCP Internal Medicine; Visit Provider Physician Assistant
DX: N40.1 Benign prostatic hyperplasia with lower urinary tract symptoms (principal); N39.44 Nocturnal enuresis; R32 Unspecified urinary incontinence
CPT/HCPCS: 81015; 87086

== ENCOUNTER 2021-05-06 23:37 | Inpatient (IN) | payer MEDICARE, OTHER, SELFPAY ==
[2021-05-06 23:41] VITALS: O2SAT 71
[2021-05-06 23:42] VITALS: BP 130/61; PULSE 85; O2SAT 68
[2021-05-06 23:43] VITALS: BP 113/55; PULSE 100; RESP 24; O2SAT 96
--- NOTE | 2021-05-06 23:43 | DI.CT.S_ITS ---
PROCEDURE: CT HEAD/BRAIN WO CON INDICATIONS: found down TECHNIQUE: Noncontrast 4.5 mm thick angled axial sections acquired from the foramen magnum to the vertex, with coronal and sagittal reformats. For radiation dose reduction, the following was used: automated exposure control, adjustment of mA and/or kV according to patient size. COMPARISON: [facility], MR, MR HEAD/BRAIN WO/W CON, 03/24/2020, 16:37. FINDINGS: Image quality: Excellent. CSF spaces: Basal cisterns are patent. No extra-axial fluid collections. The ventricles are symmetric in size and shape. Brain: No acute intracranial hemorrhage or mass effect. There is cerebral volume loss for age, with resultant ventricular and sulcal prominence. There are periventricular and deep white matter chronic small vessel ischemic changes. There is intracranial internal carotid artery atherosclerosis. Skull and face: Calvarium and visualized facial bones appear intact, without suspicious lesions. Sinuses: There is partial opacification of the right sphenoid sinus. No acute air-fluid level is seen. The remaining visualized paranasal sinuses and the mastoid air cells are clear. IMPRESSION: No acute intracranial abnormality. Right sphenoid sinus disease. Dictated by: Anatoliy Washington M.D. on 05/07/2021 at 0:21 Approved by: Anatoliy Washington M.D. on 05/07/2021 at 0:26
--- NOTE | 2021-05-06 23:43 | DI.RAD.S_ITS ---
PROCEDURE: XR CHEST 1V INDICATIONS: found down TECHNIQUE: One view of the chest was acquired. COMPARISON: [facility], CR, XR CHEST 1V, 03/12/2020, 18:17. FINDINGS: Surgical changes and devices: None. Lungs and pleura: Lungs are clear. No pleural effusions or pneumothorax. Mediastinum: Mediastinal contours appear normal. Heart size is normal. Bones and chest wall: No suspicious bony lesions. Overlying soft tissues appear unremarkable. Chronic healed left lower rib fractures noted. No acute displaced rib fracture is seen. IMPRESSION: No acute cardiopulmonary abnormality. Dictated by: Anatoliy Washington M.D. on 05/07/2021 at 0:26 Approved by: Anatoliy Washington M.D. on 05/07/2021 at 0:28
[2021-05-06 23:44] VITALS: BP 137/71; PULSE 100; RESP 18; TEMP 37.1; O2SAT 98
[2021-05-07] VITALS (24 sets, daily range): BP systolic 100–138; BP diastolic 49–90; PULSE 81–101; RESP 16–24; TEMP 36.4–37.7; O2SAT 94–100; BMI 37.6
[2021-05-07 00:02] LABS: Add Manual Diff / Slide Review NO; Basophils Absolute Auto 100 /uL (0-100); Basophils Percent Auto 0.5 % (0-2); Eosinophils Absolute Auto 0 /uL (0-450); Hematocrit 38.3 % (41-53); Hemoglobin 12.8 g/dL (13.5-17.5); Lymphocytes Absolute Auto 100 /uL (1100-4500); Lymphocytes Percent Auto 0.6 % (25-40); Mean Corpuscular HGB Conc 33.5 % (30-36); Mean Corpuscular Volume 92.5 fL (80-100); Monocytes Absolute Auto 600 /uL (0-900); Neutrophils Absolute Auto 19200 /uL (1500-7000); Neutrophils Percent Auto 95.9 % (50-75); Platelet Count 152 X10^3/uL (150-400); Red Blood Cell Count 4.14 X10^6/uL (4.5-5.9); Red Cell Distribution Width 13.3 % (11.6-14.8)
[2021-05-07 00:11] LABS: Alanine Aminotransferase 65 IU/L (<50); Albumin Globulin Ratio 1.3 (1.0-2.8); Alkaline Phosphatase 86 U/L (38-126); Aspartate Aminotransferase 85 IU/L (17-59); BUN Creatinine Ratio 27.6 (6-22); Bilirubin Total 1.4 mg/dL (0.2-1.3); Blood Urea Nitrogen 48 mg/dL (9-20); Calcium 9.1 mg/dL (8.4-10.2); Carbon Dioxide 24 mmol/L (22-32); Chloride 102 mmol/L (98-107); Estimated Glomerular Filt Rate 38.3 mL/min (>60); Globulin 3.1 g/dL (1.7-4.1); Glucose 117 mg/dL (80-110); HEMOLYSIS < 15 (0-50); Lipase 33 U/L (23-300); Potassium 4.4 mmol/L (3.4-5.1); Sodium 135 mmol/L (137-145); Total Protein 7.1 g/dL (6.3-8.2)
[2021-05-07 00:12] LABS: Lactate (Lactic Acid) 1.6 mmol/L (0.7-2.1)
[2021-05-07 00:18] LABS: Creatine Kinase 2589 U/L (55-170)
[2021-05-07 00:23] LABS: Troponin I 0.018 ng/mL (0.01-0.034)
--- NOTE | 2021-05-07 00:27 | DI.US.S_ITS ---
PROCEDURE: US ABDOMEN LIMITED INDICATIONS: ABNORMAL LIVER LABS TECHNIQUE: Real-time focused scanning was performed of the abdomen, with image documentation. COMPARISON: None. FINDINGS: The liver is normal in size and echogenicity. No focal liver mass is seen. The gallbladder appears normal without gallstones or gallbladder wall thickening. There is no pericholecystic fluid. Sonographic Camilo sign is negative. No intrahepatic or extrahepatic biliary ductal dilatation. The visualized portion of the pancreatic body is within normal limits. No abnormal free fluid in the right upper quadrant. IMPRESSION: No significant sonographic abnormality in the right upper quadrant. Dictated by: Anatoliy Washington M.D. on 05/07/2021 at 2:03 Approved by: Anatoliy Washington M.D. on 05/07/2021 at 2:05
[2021-05-07 00:28] LABS: Procalcitonin 18.3 ng/mL (<0.5)
[2021-05-07] MEDS: SODIUM CHLORIDE 0.9% 1,000 ML 1000 ML IV (00:35)
--- NOTE | 2021-05-07 00:44 | ED_ITS ---
HPI - Fall General Chief Complaint: Fall Stated Complaint: GLF Time Seen by Provider: 05/06/21 23:43 History of Present Illness HPI Narrative: Male history of Parkinson's presenting today after being found down. His neighbors noticed that his scratched her was open he was actually supposed to go to lunch with them and he never made it. He is not exactly sure what happened. He says he got up and had breakfast this morning and then he thinks he must have fallen. No obvious head injury. He is awake alert and responsive. He does not have any pain. He denies any chest pain palpitations fever chills Jj pain nausea or vomiting. EMS reports a glucose of 106. Related Data Home Medications Medication Instructions Recorded Confirmed carbidopa 25 mg-levodopa 100 mg 25 - 100 tab PO TID 05/07/21 05/07/21 tablet (Sinemet) cholecalciferol (vitamin D3) 50 50 mcg PO DAILY 05/07/21 05/07/21 mcg (2,000 unit) tablet (Vitamin D3) pimavanserin 34 mg capsule 34 mg PO DAILY 05/07/21 05/07/21 (Nuplazid) Allergies Allergy/AdvReac Type Severity Reaction Status Date / Time No Known Drug Allergies Allergy Verified 03/12/20 17:34 Review of Systems Review of Systems ROS Unobtainable: All systems reviewed & are unremarkable except as noted in HPI and below Constitutional Constitutional: Denies body ache(s), Denies chills and Denies headache(s) Eyes Eyes: Denies blurry vision ENT Ears, Nose, Mouth, and Throat: Denies dizziness and Denies headache(s) Cardiovascular Cardiovascular: Denies chest pain, Denies irregular heart rhythm and Denies dyspnea on exertion Respiratory Respiratory: Denies cough and Denies dyspnea on exertion Gastrointestinal Gastrointestinal: Denies abdominal pain and Denies nausea Genitourinary Genitourinary: Denies urinary frequency, Denies urinary hesitancy and Reports urinary incontinence Integumentary/Breasts Skin/Breast: Denies rash Neurologic Neurologic: Denies dizziness and Denies headache(s) Patient History Medical History (Updated 05/07/21 @ 02:32 by TOI Villalobos-) No chronic problems Surgical History Status post debridement of bone spur Status post hernia repair Social History Smoking Status: Never smoker Smoking Status: Never smoker alcohol intake frequency: holidays/special occasions only Substance Use Type: does not use Exam Initial Vital Signs Initial Vital Signs: Vital Signs Pulse Oximetry 71 L 05/06/21 23:41 GENERAL: Alert 75-year-old male mild parkinsonian feature with slow to respond HEENT: Head atraumatic,EOMI, pupils reactive, face symmetric, [moist] mucous membranes NECK: No vertebral tenderness full range of motion CARDIOVASCULAR: Regular rate and rhythm without murmurs, rubs or gallops. RESPIRATORY: Breath sounds equal bilaterally, no wheezes rales or rhonchi. ABDOMEN: Soft, minimal abdominal tenderness negative Camilo sign EXTREMITIES: Normal range of motion, no clubbing or edema. Neurovascularly intact. Pelvis stable able to lift each leg. NEUROLOGICAL: Alert and oriented x4. Slow to respond but appropriate. Moving all extremities veterinary virus serum inspector strength equal bilaterally SKIN: Warm, dry, no laceration, no petechiae, no rashes or lesions. Course Orders Ordered: ED Orders 05/06/21 23:43 CT head/brain wo con Stat XR chest 1V Stat EKG-12 Lead Stat 05/06/21 23:50 Complete Blood Count AUTO DIFF Stat Comprehensive Metabolic Panel Stat Lactate (Lactic Acid) Stat Lipase Stat Procalcitonin Stat Troponin & CK Cardiac Panel Stat 05/07/21 00:27 US abdomen limited Stat 05/07/21 00:45 COVID19 - ADMIT (ASSOCIATE DATA SCIENTIST swab/PCR) Stat 05/07/21 00:54 Blood Culture Stat 05/07/21 01:00 Urinalysis and Microscopic Stat Urine Culture Stat Acetaminophen (Acetaminophen 325 Mg Tablet) 650 mg PO Q6HR PRN PRN Reason: Fever/Mild Pain (1-3) Al Hydrox/Mg Hydrox/Simethicone (Mag Hydrox/Alum/Simeth 30 Ml Udc) 30 ml PO Q6HR PRN PRN Reason: Dyspepsia Aspirin (Aspirin Ec 81 Mg Tablet) 81 mg PO DAILY ZAINA Atorvastatin Calcium (Atorvastatin 20 Mg Tablet) 40 mg PO BEDTIME ZAINA Clopidogrel Bisulfate (Clopidogrel 75 Mg Tablet) 75 mg PO DAILY ZAINA Sodium Chloride (Normal Saline 0.9%) 1,000 mls @ 150 mls/hr IV CONT ZAINA Last Infusion: 05/07/21 02:26 Dose: 0 mls/hr Documented by: Infusion: 05/07/21 02:05 Dose: 0 mls/hr Documented by: Admin: 05/07/21 01:56 Dose: 200 mls/hr Documented by: BAKARI Sodium Chloride (Normal Saline 0.9%) 1,000 mls @ 80 mls/hr IV CONT ZAINA Last Admin: 05/07/21 02:27 Dose: 80 mls/hr Documented by: JAYLEN Magnesium Hydroxide (Magnesium Hydroxide 30 Ml Udc) 30 ml PO DAILY PRN PRN Reason: Constipation Naloxone HCl (Naloxone 0.4 Mg/Ml Vial) 0.2 mg IV Q2MIN PRN PRN Reason: Opiate Reversal Ondansetron HCl (Ondansetron 4 Mg/2 Ml Inj) 4 mg IV Q8HR PRN PRN Reason: Nausea And Vomiting Discontinued Medications Sodium Chloride (Normal Saline 0.9%) 1,000 mls @ 1,000 mls/hr IV BOLUS ONE Stop: 05/07/21 01:26 Last Infusion: 05/07/21 01:49 Dose: 0 mls/hr Documented by: Admin: 05/07/21 00:35 Dose: 1,000 mls/hr Documented by: RUBINA Piperacillin Sod/Tazobactam (Sod 4.5 gm/ Sodium Chloride) 100 mls @ 200 mls/hr IV NOW ONE Stop: 05/07/21 00:43 Last Infusion: 05/07/21 01:37 Dose: 0 mls/hr Documented by: Admin: 05/07/21 00:59 Dose: 200 mls/hr Documented by: BAKARI Vital Signs Vital signs: Vital Signs - 8 hr 05/06/21 23:41 05/06/21 23:42 05/06/21 23:43 Temperature Pulse Rate 85 100 H Respiratory Rate 24 Blood Pressure 130/61 113/55 L Pulse Oximetry 71 L 68 L 96 05/06/21 23:44 05/07/21 00:00 05/07/21 00:30 Temperature 98.7 F Pulse Rate 100 H 96 H 94 H Respiratory Rate 18 24 22 Blood Pressure 137/71 Pulse Oximetry 98 97 97 05/07/21 00:55 05/07/21 01:00 05/07/21 01:15 Temperature Pulse Rate 95 H 101 H 94 H Respiratory Rate 22 20 Blood Pressure 124/61 138/64 114/55 L Pulse Oximetry 98 95 94 05/07/21 01:30 05/07/21 01:45 Temperature Pulse Rate 100 H 96 H Respiratory Rate 23 Blood Pressure 101/51 L 105/55 L Pulse Oximetry 100 98 - Fall Lab Data Result diagrams: 05/06/21 23:50 05/06/21 23:50 Labs: Lab Results 05/06/21 05/06/21 05/06/21 Range/Units 23:50 23:50 23:50 WBC 20.0 H (4.5-11.0) X10^3/uL RBC 4.14 L (4.5-5.9) X10^6/uL Hgb 12.8 L (13.5-17.5) g/dL Hct 38.3 L (41-53) % MCV 92.5 (80-100) fL MCH 31.0 (26-34) PG MCHC 33.5 (30-36) % RDW 13.3 (11.6-14.8) % Plt Count 152 (150-400) X10^3/uL Neut % (Auto) 95.9 H (50-75) % Lymph % (Auto) 0.6 L (25-40) % [place] % (Auto) 3.0 (3-14) % Eos % (Auto) 0.0 L (2-4) % Baso % (Auto) 0.5 (0-2) % Neut # (Auto) 07462 H (4956-0170) /uL Lymph # (Auto) 100 L (8584-0289) /uL [place] # (Auto) 600 (0-900) /uL Eos # (Auto) 0 (0-450) /uL Baso # (Auto) 100 (0-100) /uL Sodium 135 L (137-145) mmol/L Potassium 4.4 (3.4-5.1) mmol/L Chloride 102 (98-107) mmol/L Carbon Dioxide 24 (22-32) mmol/L BUN 48 H (9-20) mg/dL Creatinine 1.74 H (0.66-1.25) mg/dL Estimated GFR 38.3 L (>60) mL/min BUN/Creatinine Ratio 27.6 H (6-22) Glucose 117 H (80-110) mg/dL Lactate 1.6 (0.7-2.1) mmol/L Calcium 9.1 (8.4-10.2) mg/dL Phosphorus (2.3-3.7) mg/dL Magnesium (1.6-2.3) mg/dL Total Bilirubin 1.4 H (0.2-1.3) mg/dL AST 85 H (17-59) IU/L ALT 65 H (<50) IU/L Alkaline Phosphatase 86 (38-126) U/L Total Creatine Kinase 2589 H (55-170) U/L CK-MB (CK-2) 9.84 H (<2.37) ng/mL CK-MB (CK-2) Rel Index 0.4 L (1.5-5.0) % Troponin I 0.018 (0.01-0.034) ng/mL NT-Pro-B Natriuret Pep (<450) pg/mL Total Protein 7.1 (6.3-8.2) g/dL Albumin 4.0 (3.5-5.0) g/dL Globulin 3.1 (1.7-4.1) g/dL Albumin/Globulin Ratio 1.3 (1.0-2.8) Lipase 33 (23-300) U/L Procalcitonin 18.3 H (<0.5) ng/mL Urine Color Urine Appearance Urine pH (4.5-8.0) Ur Specific [place] (1.000-1.035) Urine Protein (Negative) Urine Glucose (UA) (Negative) g/dL Urine Ketones (NEGATIVE) Urine Occult Blood (Negative) Urine Nitrate (Negative) Urine Bilirubin (NEGATIVE) Urine Urobilinogen (0.2) E.U./dL Ur Leukocyte Esterase (NEGATIVE) Urine RBC (0-5/HPF) Urine WBC (0-5/HPF) Ur Squamous Epith Cells (0-5/HPF) Urine Bacteria (None) Ur Culture Indicated? SARS-CoV-2 (PCR) (Negative) 05/06/21 05/06/21 05/07/21 Range/Units 23:50 23:50 00:45 WBC (4.5-11.0) X10^3/uL RBC (4.5-5.9) X10^6/uL Hgb (13.5-17.5) g/dL Hct (41-53) % MCV (80-100) fL MCH (26-34) PG MCHC (30-36) % RDW (11.6-14.8) % Plt Count (150-400) X10^3/uL Neut % (Auto) (50-75) % Lymph % (Auto) (25-40) % [place] % (Auto) (3-14) % Eos % (Auto) (2-4) % Baso % (Auto) (0-2) % Neut # (Auto) (5084-4561) /uL Lymph # (Auto) (9350-8269) /uL [place] # (Auto) (0-900) /uL Eos # (Auto) (0-450) /uL Baso # (Auto) (0-100) /uL Sodium (137-145) mmol/L Potassium (3.4-5.1) mmol/L Chloride (98-107) mmol/L Carbon Dioxide (22-32) mmol/L BUN (9-20) mg/dL Creatinine (0.66-1.25) mg/dL Estimated GFR (>60) mL/min BUN/Creatinine Ratio (6-22) Glucose (80-110) mg/dL Lactate (0.7-2.1) mmol/L Calcium (8.4-10.2) mg/dL Phosphorus 3.8 H (2.3-3.7) mg/dL Magnesium 2.2 (1.6-2.3) mg/dL Total Bilirubin (0.2-1.3) mg/dL AST (17-59) IU/L ALT (<50) IU/L Alkaline Phosphatase (38-126) U/L Total Creatine Kinase (55-170) U/L CK-MB (CK-2) (<2.37) ng/mL CK-MB (CK-2) Rel Index (1.5-5.0) % Troponin I (0.01-0.034) ng/mL NT-Pro-B Natriuret Pep 3130 H (<450) pg/mL Total Protein (6.3-8.2) g/dL Albumin (3.5-5.0) g/dL Globulin (1.7-4.1) g/dL Albumin/Globulin Ratio (1.0-2.8) Lipase (23-300) U/L Procalcitonin (<0.5) ng/mL Urine Color Urine Appearance Urine pH (4.5-8.0) Ur Specific [place] (1.000-1.035) Urine Protein (Negative) Urine Glucose (UA) (Negative) g/dL Urine Ketones (NEGATIVE) Urine Occult Blood (Negative) Urine Nitrate (Negative) Urine Bilirubin (NEGATIVE) Urine Urobilinogen (0.2) E.U./dL Ur Leukocyte Esterase (NEGATIVE) Urine RBC (0-5/HPF) Urine WBC (0-5/HPF) Ur Squamous Epith Cells (0-5/HPF) Urine Bacteria (None) Ur Culture Indicated? SARS-CoV-2 (PCR) Negative (Negative) 05/07/21 Range/Units 01:00 WBC (4.5-11.0) X10^3/uL RBC (4.5-5.9) X10^6/uL Hgb (13.5-17.5) g/dL Hct (41-53) % MCV (80-100) fL MCH (26-34) PG MCHC (30-36) % RDW (11.6-14.8) % Plt Count (150-400) X10^3/uL Neut % (Auto) (50-75) % Lymph % (Auto) (25-40) % [place] % (Auto) (3-14) % Eos % (Auto) (2-4) % Baso % (Auto) (0-2) % Neut # (Auto) (0430-8359) /uL Lymph # (Auto) (3232-1890) /uL [place] # (Auto) (0-900) /uL Eos # (Auto) (0-450) /uL Baso # (Auto) (0-100) /uL Sodium (137-145) mmol/L Potassium (3.4-5.1) mmol/L Chloride (98-107) mmol/L Carbon Dioxide (22-32) mmol/L BUN (9-20) mg/dL Creatinine (0.66-1.25) mg/dL Estimated GFR (>60) mL/min BUN/Creatinine Ratio (6-22) Glucose (80-110) mg/dL Lactate (0.7-2.1) mmol/L Calcium (8.4-10.2) mg/dL Phosphorus (2.3-3.7) mg/dL Magnesium (1.6-2.3) mg/dL Total Bilirubin (0.2-1.3) mg/dL AST (17-59) IU/L ALT (<50) IU/L Alkaline Phosphatase (38-126) U/L Total Creatine Kinase (55-170) U/L CK-MB (CK-2) (<2.37) ng/mL CK-MB (CK-2) Rel Index (1.5-5.0) % Troponin I (0.01-0.034) ng/mL NT-Pro-B Natriuret Pep (<450) pg/mL Total Protein (6.3-8.2) g/dL Albumin (3.5-5.0) g/dL Globulin (1.7-4.1) g/dL Albumin/Globulin Ratio (1.0-2.8) Lipase (23-300) U/L Procalcitonin (<0.5) ng/mL Urine Color Yellow Urine Appearance Cloudy Urine pH 6.0 (4.5-8.0) Ur Specific [place] 1.010 (1.000-1.035) Urine Protein 1+ H (Negative) Urine Glucose (UA) Trace H (Negative) g/dL Urine Ketones Negative (NEGATIVE) Urine Occult Blood 3+ H (Negative) Urine Nitrate Negative (Negative) Urine Bilirubin Negative (NEGATIVE) Urine Urobilinogen 0.2 (0.2) E.U./dL Ur Leukocyte Esterase 3+ H (NEGATIVE) Urine RBC 10-30/hpf H (0-5/HPF) Urine WBC >100/hpf H (0-5/HPF) Ur Squamous Epith Cells 0-1 /hpf (0-5/HPF) Urine Bacteria Many (>30) H (None) Ur Culture Indicated? Specimen cultured SARS-CoV-2 (PCR) (Negative) Point of Care Testing Glucose POC [address] scan - head: Radiologist's Impression: PROCEDURE:? CT HEAD/BRAIN WO CON ? INDICATIONS:? found down ? TECHNIQUE:? Noncontrast 4.5 mm thick angled axial sections acquired from the foramen magnum to the vertex, with coronal and sagittal reformats.? For radiation dose reduction, the following was used:? automated exposure control, adjustment of mA and/or kV according to patient size.? ? COMPARISON:? [facility], MR, MR HEAD/BRAIN WO/W CON, 03/24/2020, 16:37. ? FINDINGS:? Image quality:? Excellent.? ? CSF spaces:? Basal cisterns are patent.? No extra-axial fluid collections.? The ventricles are symmetric in size and shape.? ? Brain:? No acute intracranial hemorrhage or mass effect.? There is cerebral volume loss for age, with resultant ventricular and sulcal prominence.? There are periventricular and deep white matter chronic small vessel ischemic changes.? There is intracranial internal carotid artery atherosclerosis.? ? Skull and face:? Calvarium and visualized facial bones appear intact, without suspicious lesions.? ? Sinuses:? There is partial opacification of the right sphenoid sinus.? No acute air-fluid level is seen.? The remaining visualized paranasal sinuses and the mastoid air cells are clear. ? IMPRESSION:? No acute intracranial abnormality.? Right sphenoid sinus disease.? Dictated by: Anatoliy Washington M.D. on 05/07/2021 at 0:21 ? ? Chest x-ray: Radiologist's Impression: PROCEDURE:? XR CHEST 1V ? INDICATIONS:? found down ? TECHNIQUE:? One view of the chest was acquired.? ? COMPARISON:? [facility], CR, XR CHEST 1V, 03/12/2020, 18:17. ? FINDINGS:? ? Surgical changes and devices:? None.? ? Lungs and pleura:? Lungs are clear.? No pleural effusions or pneumothorax.? ? Mediastinum:? Mediastinal contours appear normal.? Heart size is normal.? ? Bones and chest wall:? No suspicious bony lesions.? Overlying soft tissues appear unremarkable.? Chronic healed left lower rib fractures noted.? No acute displaced rib fracture is seen. ? IMPRESSION:? No acute cardiopulmonary abnormality. ? ? Dictated by: Anatoliy Washington M.D. on 05/07/2021 at 0:26 ? ? ECG Data Interpretation: Sinus rhythm rate 100 p.r. interval 184 QRS [address] changes no T-wave inversion MDM Narrative Medical decision making narrative: The patient is found down with no obvious injury, he has no focal deficits. He is found have leukocytosis of 20,000 with left shift significantly elevated procalcitonin of 18, he has a normal lactate 1.6 he is afebrile with normal vitals. The probable bacterial infection however unknown source at this time. Patel catheter was placed. He actually had 1700 out very quickly. UA does show leukocytes, blood and bacteria. Consistent with UTI. Started on Zosyn. He has mild elevation of bilirubin and liver enzymes. Upon re-evaluation he is mildly tenderness right upper quadrant. A bilirubin can also be elevated and sepsis. Found have mild elevation of CPK of 2500. He is started on IV fluids. Patient's blood pressure heart rate remained stable he is afebrile in the ED. However after Patel catheters placed a at 5:00 p.m. out blood pressure did decrease to systolic of 101. He is given 2 L of IV fluid here in the emergency department started on maintenance. Discussed case with Dion nicole ORGAN TEACHER was obtained patient's symptoms test results and the accepts patient. Discharge Plan Departure Patient Disposition: Admitted As Inpatient Clinical Impression: Acute UTI Admit Date/Time: 05/07/21 01:51 Admit Provider: Jazmin Gonzalez
[2021-05-07 00:56] LABS: CKMB % Relative Index 0.4 % (1.5-5.0); Creatine Kinase MB 9.84 ng/mL (<2.37)
[2021-05-07] MEDS: PIPERACILLIN/TAZO 4.5 GM in SODIUM CHLORIDE 0.9% 100 ML 200 ML IV (00:59)
[2021-05-07 01:12] LABS: Bilirubin Urine UA NEGATIVE (NEGATIVE); Color Urine UA YELLOW; Glucose Urine UA TRACE g/dL (Negative); Ketones Urine UA NEGATIVE (NEGATIVE); Leukocyte Esterase Urine UA 3+ (NEGATIVE); Nitrite Urine UA NEGATIVE (Negative); Occult Blood Urine UA 3+ (Negative); Protein Urine UA 1+ (Negative); Urobilinogen Urine UA 0.2 E.U./dL (0.2)
[2021-05-07 01:13] LABS: Appearance Urine UA CLOUDY; RBC Urine 10-30/HPF (0-5/HPF); WBC Urine >100/HPF (0-5/HPF)
[2021-05-07 01:14] LABS: Bacteria Urine Many (>30); Culture Indicated Urine Specimen Cultured; Squamous Epithelial Cell Urine 0-1 /HPF (0-5/HPF)
[2021-05-07 01:46] LABS: COVID19 - ADMIT (NP swab/PCR) Negative (Negative)
[2021-05-07] MEDS: SODIUM CHLORIDE 0.9% 1,000 ML 200 ML IV (01:56)
--- NOTE | 2021-05-07 02:03 | DI.MRI.S_ITS ---
PROCEDURE: MR STROKE Pre- and post-contrast brain MRI, non-contrast brain MR angiogram, pre- and postcontrast neck MR angiogram INDICATIONS: LOC found down TECHNIQUE: Brain: Noncontrast axial T1 spin echo, axial T2 fast spin echo, sagittal and axial FLAIR, coronal T2 fast spin echo, axial gradient echo, axial diffusion and ADC through the brain. After the administration of contrast, axial 3D VIBE of the cranial vasculature and brain. Brain MRA: Non-contrast 3-D time of flight MR angiogram, with multiple pzpsebl-ecmmnwvjv-ofdtsamyqx (MIP) reformats performed. Neck MRA: Axial and sagittal TruFISP through the neck. Coronal dynamic MR angiogram during administration of contrast in the arterial and venous phases, with 3-dimenstional bujqysx-nyzqskiwy-wknuwsjjap (MIP) reformats constructed from subtraction images. COMPARISON: None. FINDINGS: Image quality: Excellent. BRAIN: CSF spaces: Ventricles are normal in size and shape. Basal cisterns are patent. No extra-axial fluid collections. Brain: No intracranial bleeds or mass effects. A few scattered T2/FLAIR hyperintense foci noted within the periventricular white matter. Prominent perivascular spaces. Mata-white matter interface is normal. Diffusion weighted images show no acute ischemic insults. Brainstem appears normal. Normal intravascular flow voids are present. No abnormal intracranial enhancement. Skull and face: Calvarial marrow signal is normal. Orbits appear normal. Sinuses: There is mild mucosal thickening of the paranasal sinuses most prominent within the ethmoid air cells and the sphenoid sinuses. There is partial opacification of the right sphenoid sinus with likely air-fluid level. BRAIN MR ANGIOGRAM: Anterior circulation: Intracranial internal carotid arteries are normal in size and enhancement. The flow within the paired anterior cerebral arteries is normal and symmetric. The flow within the middle cerebral arteries is normal and symmetric. The anterior communicating artery is seen. There is approximately 50 percent stenosis of the proximal left intracranial carotid artery at the ophthalmic segment. No high-grade stenosis or occlusion. Posterior circulation: The visualized portions of the vertebral arteries demonstrate normal caliber, and join to form a normal appearing basilar artery. The flow within the posterior cerebral arteries is normal and symmetric. No stenoses, occlusions, or aneurysms. NECK MR ANGIOGRAM: Carotids: Great vessels demonstrate a conventional anatomy as they arise from the aortic arch. The origins of the common carotid arteries appear patent. The calibers and courses of both common carotid arteries are normal. The bifurcation regions appear normal bilaterally. The internal carotid arteries demonstrate normal course and caliber. Posterior circulation: The origins of the vertebral arteries appear patent. More superior portions of both vertebral arteries demonstrate normal course and caliber, and join to form a normal appearing basilar artery. Miscellaneous: Subclavian arteries appear patent. Pre-contrast images through the neck show no soft tissue abnormalities. IMPRESSION: BRAIN MRI: No restricted diffusion to suggest acute ischemia. A few scattered T2/FLAIR hyperintensity suggestive of microvascular ischemic changes not greater than expected for patient's age. BRAIN MR ANGIOGRAM: Approximately 50 percent stenosis of the left ophthalmic segment of the intracranial internal carotid artery. No high-grade stenosis or occlusion NECK MR ANGIOGRAM: No high-grade stenosis or occlusion. Dictated by: Steven Marte D.O. on 05/07/2021 at 9:14 Approved by: Steven Marte D.O. on 05/07/2021 at 9:25
--- NOTE | 2021-05-07 02:10 | DI.ECHO.S_ITS ---
[facility]---------+ [facility] +---------+ : : [address] : [place] [place] : : : : [id number] : : : : Phone: [phone] Echocardiogram Report + + :Name: CHRISTIAN ROBB Study Date: 05/07/2021 Height: 68 in : :[facility] ReadingLocation: Weight: 180 lb : : Gender: Male BSA: 2.0 m2 : :: 1945 Age: 75 yrs BP: 110/50 mmHg: :Reason For Study: LOSS OF CONSCIOUSNESS : :Ordering Physician: Brett : :Hospitalist Performed By: Yisel Jeronimo : :Referring: LUANN KLINE : + + Interpretation Summary 1) Normal left ventricular size and thickness with low normal systolic function (EF 50-55%). 2) Normal right ventricular size and function. 3) There is mild mitral regurgitation that is directed posteriorly. 4) Moderate atherosclerotic plaque(s) in the aortic arch is suspected (images suboptimal for definitive evaluation). 5) No prior Echo available for comparison. Procedure: A two-dimensional transthoracic echocardiogram with color flow and Doppler was performed. The study quality was technically adequate. There is no prior echocardiogram noted for this patient. The patient was in normal sinus rhythm during the exam. Left Ventricle: The left ventricle is normal in size. There is normal left ventricular wall thickness. The ejection fraction is estimated to be 50-55%. There are no focal wall motion abnormalities. Diastolic parameters suggest probable normal left ventricular diastolic function and normal filling pressures. Right Ventricle: The right ventricle is normal in size and function. Atria: The left atrium is moderately dilated. Right atrial size is normal. There is no Doppler evidence for an interatrial shunt. Mitral Valve: The mitral valve leaflets appear mildly thickened, but open well. There is mild mitral regurgitation. There is an eccentric jet of mitral regurgitation that is directed posteriorly. Aortic Valve: The aortic valve is normal in structure and function. There is mild aortic valve sclerosis. There is no aortic valve stenosis. There is trace aortic regurgitation. Tricuspid Valve: The tricuspid valve is normal in structure and function. There is mild tricuspid regurgitation. The right ventricular systolic pressure is estimated to be at least 34 mmHg based on an estimated right atrial pressure of 8 mm Hg. Pulmonic Valve: The pulmonic valve is not well seen, but is grossly normal. There is a trace or physiologic amount of pulmonic regurgitation. Great Vessels: The aortic root is normal size. The ascending aorta is normal in size. The aortic arch is normal in size. Moderate atherosclerotic plaque(s) in the aortic arch. The IVC is dilated (diameter is greater than 2.1 cm) yet it collapses greater than 50% with a sniff. This suggests a right atrial pressure of 8 mm Hg. Pericardium/ Pleura There is a trivial pericardial effusion noted. MMode/2D Measurements & Calculations LVIDd: 4.1 cm LVOT diam: 2.2 cm LVIDs: 3.0 cm Ao root diam: 3.0 cm FS: 26.3 % asc Aorta Diam: 2.9 cm EPSS: 0.68 cm Ao Arch Diam (Prox Trans): 2.9 cm IVSd: 0.60 cm LVPWd: 0.83 cm LV michaud. diameter/BSA (cm/m^2): 2.1 LV sys. diameter/BSA (cm/m^2): 1.6 LA A2 area: 25.0 cm2 RA long axis: 5.5 cm LA A4 area: 22.7 cm2 RA area: 18.9 cm2 LA length (vol): 6.0 cm RA vol: 55.2 ml LA vol: 80.5 ml RA : 28.2 ml/m2 LA vol index: 41.2 ml/m2 IVC diam: 2.3 cm RVD1 (basal): 3.7 cm TAPSE: 3.0 cm Doppler Measurements & Calculations Ao V2 max: 89.4 cm/sec LVOT Max Kenneth: 69.8 cm/sec Ao V2 mean: 68.3 cm/sec LV V1 max P.9 mmHg Ao max P.2 mmHg LV V1 VTI: 13.6 cm Ao mean P.0 mmHg LAURA(I,D): 2.9 cm2 Ao V2 VTI: 18.1 cm LAURA(V,D): 3.0 cm2 sev ratio: 0.75 LAURA indexed to BSA (cm^2/m^2): 1.5 MV E max kenneth: 65.3 cm/sec TR max kenneth: 252.3 cm/sec MV A max kenneth: 67.7 cm/sec TR max P.5 mmHg MV E/A: 0.96 PA V2 max: 69.0 cm/sec Med Peak E' Kenneth: 9.8 cm/sec PA V2 mean: 49.0 cm/sec E/E' med: 6.7 PA mean P.1 mmHg Lat Peak E' Kenneth: 8.2 cm/sec PA pr(Accel): 25.1 mmHg E/E' lat: 7.9 E/e' average: 7.3 MV dec time: 0.19 sec SV(CLARITA): 52.2 ml Reading Physician:04:37 PM
[2021-05-07] MEDS: SODIUM CHLORIDE 0.9% 1,000 ML 80 ML IV ×2 (02:27→22:28)
[2021-05-07 02:36] LABS: Magnesium 2.2 mg/dL (1.6-2.3); Phosphorous 3.8 mg/dL (2.3-3.7)
[2021-05-07 02:45] LABS: NT-proBNP (BNP-Adult 18+) 3130 pg/mL (<450)
[2021-05-07 02:58] LABS: Hemoglobin A1C% w Est Avg Glu 4.8 % (4.0-6.0)
--- NOTE | 2021-05-07 03:12 | PM.HP.1 ---
History of Present Illness History of Present Illness Date Patient Seen: 05/07/21 Time Patient Seen: 02:28 Chief complaint: GLF Narrative: Jj Ennis is a 75 yr old male with a history of parkinsons who lives alone and was brought in to the ED after being found down for an undetermined amount of time in his home by his neighbors.? He was actually supposed to go to lunch with his neighbors and he never made it.? Patient has no recall the events, and unable to provide any further information at this time. He says he got up and had breakfast this morning and then he thinks he must have fallen.? No obvious head injury.? He was awake, alert, and responsive in ED. Upon admit he is unable to keep his eyes open, and appears confused, begins to answer questions, only to trail off into a mumble.?His RN contacted his daughter Ruby Ennis who verbalized that this is not his baseline. The patient is normally alert, orientated, independent, and very physically active. Due to acute confusion and parkinsons unable to obtain accurate HPI & ROS. He denies chest pain, SOB, abd pain, nausea, vomiting, headache, changes in vision, weakness, numbness, tingling, head injury, history of cardiac or pulmonary, palpitations, fever, body aches, or chills. EMS reports a glucose of 106. Upon admit to the unit patient's temp 98.7?, BP 101/51, HR 100, R 20, O2 saturation 100%. The patient is resting comfortably in bed in no distress. Neutrophilic leukocytosis- WBC 20, with a left shift neutrophils 19,200, HGB 12.8, HCT 38.3. 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 Rhabdomyolysis-dark urine, urinalysis positive for bacteria and sent for culture, total creatinine kinase 2589, CK-MB 9.84, initial troponin 0.018, lipase normal, procalcitonin 18.3. Patient was bladder scanned in the ED and found to have 1700 cc of urinary retention, at which time Patel catheter was placed. GCS 14, patient meets SIRS and sepsis criteria, sofa score: 4. Head CT demonstrated no acute intracranial processes although of note right sphenoid disease. Chest x-ray demonstrated no acute cardiopulmonary processes. Abdominal ultrasound was negative for any abnormal findings. EKG:Sinus rhythm rate 100, no ST changes no T-wave inversion. Patient admitted for loss of consciousness, found down, encephalopathy secondary to sepsis with rhabdomyolysis resulting in MIRZA likely secondary to urinary retention. Patient History Medical History (Updated 05/07/21 @ 02:32 by TOI Villalobos-) No chronic problems Surgical History Status post debridement of bone spur Status post hernia repair Family & Social History Social History: Prior Living Arrangements House Safety & Behavioral: Feels Safe in Current Yes Environment Been Physically Hurt or No Threatened By a Person Tobacco & Substance use: Smoking Status Never smoker alcohol intake frequency holiday/special occasion Substance Use Type does not use Meds Home Medications and Allergies Home Medications Medication Instructions Recorded Confirmed Type carbidopa 25 mg-levodopa 100 mg 25 - 100 tab PO TID 05/07/21 05/07/21 History tablet (Sinemet) cholecalciferol (vitamin D3) 50 50 mcg PO DAILY 05/07/21 05/07/21 History mcg (2,000 unit) tablet (Vitamin D3) pimavanserin 34 mg capsule 34 mg PO DAILY 05/07/21 05/07/21 History (Nuplazid) Allergies Allergy/AdvReac Type Severity Reaction Status Date / Time No Known Drug Allergies Allergy Verified 03/12/20 17:34 Exam Vital Signs (past 8 hours): - 05/06/21 23:41 05/06/21 23:42 05/06/21 23:43 Temperature Pulse Rate 85 100 H Respiratory Rate 24 Blood Pressure 130/61 113/55 L Pulse Oximetry 71 L 68 L 96 05/06/21 23:44 05/07/21 00:00 05/07/21 00:30 Temperature 98.7 F Pulse Rate 100 H 96 H 94 H Respiratory Rate 18 24 22 Blood Pressure 137/71 Pulse Oximetry 98 97 97 05/07/21 00:55 05/07/21 01:00 05/07/21 01:15 Temperature Pulse Rate 95 H 101 H 94 H Respiratory Rate 22 20 Blood Pressure 124/61 138/64 114/55 L Pulse Oximetry 98 95 94 05/07/21 01:30 05/07/21 01:45 05/07/21 02:00 Temperature Pulse Rate 100 H 96 H 95 H Respiratory Rate 23 19 Blood Pressure 101/51 L 105/55 L 100/53 L Pulse Oximetry 100 98 98 05/07/21 02:08 05/07/21 02:16 Temperature 98.7 F 98.7 F Pulse Rate 87 87 Respiratory Rate 22 22 Blood Pressure 127/90 127/60 Pulse Oximetry 96 96 Oxygen Delivery Method Room Air Objective Labs Result Diagrams: 05/06/21 23:50 05/06/21 23:50 Labs: Laboratory Results - last 24 hr 05/06/21 05/06/21 05/06/21 23:50 23:50 23:50 WBC 20.0 H RBC 4.14 L Hgb 12.8 L Hct 38.3 L MCV 92.5 MCH 31.0 MCHC 33.5 RDW 13.3 Plt Count 152 Neut % (Auto) 95.9 H Lymph % (Auto) 0.6 L [place] % (Auto) 3.0 Eos % (Auto) 0.0 L Baso % (Auto) 0.5 Neut # (Auto) 44747 H Lymph # (Auto) 100 L [place] # (Auto) 600 Eos # (Auto) 0 Baso # (Auto) 100 Sodium 135 L Potassium 4.4 Chloride 102 Carbon Dioxide 24 BUN 48 H Creatinine 1.74 H Estimated GFR 38.3 L BUN/Creatinine Ratio 27.6 H Glucose 117 H Hemoglobin A1c Lactate 1.6 Calcium 9.1 Phosphorus Magnesium Total Bilirubin 1.4 H AST 85 H ALT 65 H Alkaline Phosphatase 86 Total Creatine Kinase 2589 H CK-MB (CK-2) 9.84 H CK-MB (CK-2) Rel Index 0.4 L Troponin I 0.018 NT-Pro-B Natriuret Pep Total Protein 7.1 Albumin 4.0 Globulin 3.1 Albumin/Globulin Ratio 1.3 Lipase 33 Procalcitonin 18.3 H Urine Color Urine Appearance Urine pH Ur Specific Jach[place] Urine Protein Urine Glucose (UA) Urine Ketones Urine Occult Blood Urine Nitrate Urine Bilirubin Urine Urobilinogen Ur Leukocyte Esterase Urine RBC Urine WBC Ur Squamous Epith Cells Urine Bacteria Ur Culture Indicated? SARS-CoV-2 (PCR) 05/06/21 05/06/21 05/06/21 23:50 23:50 23:50 WBC RBC Hgb Hct MCV MCH MCHC RDW Plt Count Neut % (Auto) Lymph % (Auto) [place] % (Auto) Eos % (Auto) Baso % (Auto) Neut # (Auto) Lymph # (Auto) [place] # (Auto) Eos # (Auto) Baso # (Auto) Sodium Potassium Chloride Carbon Dioxide BUN Creatinine Estimated GFR BUN/Creatinine Ratio Glucose Hemoglobin A1c 4.8 Lactate Calcium Phosphorus 3.8 H Magnesium 2.2 Total Bilirubin AST ALT Alkaline Phosphatase Total Creatine Kinase CK-MB (CK-2) CK-MB (CK-2) Rel Index Troponin I NT-Pro-B Natriuret Pep 3130 H Total Protein Albumin Globulin Albumin/Globulin Ratio Lipase Procalcitonin Urine Color Urine Appearance Urine pH Ur Specific [place] Urine Protein Urine Glucose (UA) Urine Ketones Urine Occult Blood Urine Nitrate Urine Bilirubin Urine Urobilinogen Ur Leukocyte Esterase Urine RBC Urine WBC Ur Squamous Epith Cells Urine Bacteria Ur Culture Indicated? SARS-CoV-2 (PCR) 05/07/21 05/07/21 00:45 01:00 WBC RBC Hgb Hct MCV MCH MCHC RDW Plt Count Neut % (Auto) Lymph % (Auto) [place] % (Auto) Eos % (Auto) Baso % (Auto) Neut # (Auto) Lymph # (Auto) [place] # (Auto) Eos # (Auto) Baso # (Auto) Sodium Potassium Chloride Carbon Dioxide BUN Creatinine Estimated GFR BUN/Creatinine Ratio Glucose Hemoglobin A1c Lactate Calcium Phosphorus Magnesium Total Bilirubin AST ALT Alkaline Phosphatase Total Creatine Kinase CK-MB (CK-2) CK-MB (CK-2) Rel Index Troponin I NT-Pro-B Natriuret Pep Total Protein Albumin Globulin Albumin/Globulin Ratio Lipase Procalcitonin Urine Color Yellow Urine Appearance Cloudy Urine pH 6.0 Ur Specific [place] 1.010 Urine Protein 1+ H Urine Glucose (UA) Trace H Urine Ketones Negative Urine Occult Blood 3+ H Urine Nitrate Negative Urine Bilirubin Negative Urine Urobilinogen 0.2 Ur Leukocyte Esterase 3+ H Urine RBC 10-30/hpf H Urine WBC >100/hpf H Ur Squamous Epith Cells 0-1 /hpf Urine Bacteria Many (>30) H Ur Culture Indicated? Specimen cultured SARS-CoV-2 (PCR) Negative Assessment & Plan Assessment & Plan narrative: Jj Ennis is a 75 yr old male with a history of parkinsons who lives alone and was brought in to the ED after being found down for an undetermined amount of time in his home by his neighbors.?Patient admitted for loss of consciousness, found down, encephalopathy secondary to sepsis with rhabdomyolysis resulting in MIRZA likely secondary to urinary retention. 1.Loss of consciousness, found down (undetermined amount of time), encephalopathy secondary to sepsis with rhabdomyolysis resulting in MIRZA likely secondary to urinary retention, acute on chronic, present on admission -I suspect UTI, pyelonephritis, as a result of chronic unrinary retention. -differential diagnosis TIA, Stroke, ACS, seizure, infection, primary intracranial or metastatic tumors, adverse effects of medication, autoimmune or paraneoplastic diseases, syphilis, fungal meningitis, tuberculosis meningitis, toxoplasmosis encephalitis, cryptococcal meningitis - HR 100, R 20, O2 saturation 100%. The patient is resting comfortably in bed in no distress. GCS 14, patient meets SIRS and sepsis criteria, sofa score: 4. 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 -Dark urine, urinalysis positive for bacteria, total CK 2589, CK-MB 9.84, initial troponin 0.018, lipase normal, procalcitonin 18.3, 1700 cc/urinary retention -Head CT negative, MR ordered for tomorrow-Plavix, ASA, Lipitor -1L/Bolus NS in ED, additional fluid hydration bolus provided-then NS@80cc/hr -In ED Rocephin 1gram, Zosyn- Ordered Rocephin [id number] culture pending. -Strict I&O, daily weights, call for urinary output less than 240cc per (8hr)shift or an SaO2 less than 92% -Blood culture pending, lipids, PT, PTT -Patel catheter place management-patient may require out patient evaluation by urology for urinary retention. 2. Parkinson's disease, acute on chronic, present on admission -continue patient's carbidopa-levodopa, Pimavanserin Code status:Limited- DNI Surrogate decision maker: Ruby Ennis Daughter - who verified code status and medication reconciliation. COVID PCR:Negative COVID vaccination: Unknown DVT/VTE prophylaxis:Plavix & SCD's Disposition: Estimated length of stay greater than 2 midnights. I have utilized all available immediate resources to obtain, update, or review the patient's current medications. I confirmed that the patient's advanced care plan is present, Code status is documented and/or surrogate decision maker is listed in the patient's medical record. Time Spent With Patient Critical Care time: I spent a total of [] minutes of critical care time on this patient's care today; this time is exclusive of procedural time. Scores GCS Michael coma scale eye opening: To pressure [place] coma scale verbal response: Confused [place] coma scale motor response: Normal flexion Michael coma scale total score: 10 SOFA PaO2/FIO2: >=400 mmHg Platelets: >= 150 Bilirubin: 1.2-1.9 mg/dL Hypotension: MAP >= 70 mmHg [place] Coma Scale: 10-12 Renal: Creatinine 1.2-1.9 mg/dL SOFA Score: 4
[2021-05-07] MEDS: cefTRIAXone 1,000 MG in SODIUM CHLORIDE 0.9% 100 ML 200 ML IV ×2 (04:01→08:51)
[2021-05-07] MEDS: SODIUM CHLORIDE 0.9% 500 ML IV (05:03)
[2021-05-07 06:10] LABS: INR 1.2 (0.9-1.3); Prothrombin Time 12.9 SECONDS (10.1-12.7)
[2021-05-07 06:13] LABS: PTT Partial Thromboplastin Tim 30 SECONDS (26.4-36.2)
[2021-05-07 06:22] LABS: Add Manual Diff / Slide Review NO; Basophils Absolute Auto 0 /uL (0-100); Eosinophils Absolute Auto 0 /uL (0-450); Hematocrit 33.6 % (41-53); Hemoglobin 11.4 g/dL (13.5-17.5); Lymphocytes Absolute Auto 200 /uL (1100-4500); Lymphocytes Percent Auto 1.9 % (25-40); Mean Corpuscular HGB Conc 33.9 % (30-36); Mean Corpuscular Hemoglobin 32.1 PG (26-34); Mean Corpuscular Volume 94.6 fL (80-100); Monocytes Absolute Auto 500 /uL (0-900); Neutrophils Absolute Auto 12400 /uL (1500-7000); Neutrophils Percent Auto 94.1 % (50-75); Platelet Count 108 X10^3/uL (150-400); Red Blood Cell Count 3.55 X10^6/uL (4.5-5.9); Red Cell Distribution Width 13.7 % (11.6-14.8); White Blood Cell Count 13.1 X10^3/uL (4.5-11.0)
[2021-05-07 06:27] LABS: Alanine Aminotransferase 55 IU/L (<50); Albumin 3.2 g/dL (3.5-5.0); Albumin Globulin Ratio 1.1 (1.0-2.8); Alkaline Phosphatase 70 U/L (38-126); Aspartate Aminotransferase 86 IU/L (17-59); Bilirubin Total 0.9 mg/dL (0.2-1.3); Blood Urea Nitrogen 40 mg/dL (9-20); Carbon Dioxide 22 mmol/L (22-32); Chloride 105 mmol/L (98-107); Cholesterol 111 mg/dL (140-199); Estimated Glomerular Filt Rate 50.1 mL/min (>60); Globulin 2.8 g/dL (1.7-4.1); Glucose 118 mg/dL (80-110); HDL Cholesterol 47 mg/dL (40-60); HEMOLYSIS < 15 (0-50); LDL Cholesterol Calculated 49 mg/dL (<100); Potassium 4.3 mmol/L (3.4-5.1); Sodium 136 mmol/L (137-145); Triglycerides 76 mg/dL (35-150)
--- NOTE | 2021-05-07 07:26 | DI.US.S_ITS ---
PROCEDURE: US RENAL COMPLETE INDICATIONS: MIRZA and UTI TECHNIQUE: Real-time scanning was performed of the kidneys and bladder, with image documentation. COMPARISON: None. FINDINGS: Kidneys: Kidneys are normal in size. Right kidney measures 9.9 cm long; left kidney measures 10.6 cm long. Right renal cortical thickness is 1.7 cm; left renal cortical thickness is 2.1 cm. Renal cortical echotexture is normal. No nephrolithiasis. No suspicious solid mass lesions. There is mild calyceal and pelvis dilation consistent with moderate hydronephrosis on the left. Bladder: Bladder is decompressed by intraluminal Patel. Miscellaneous: No free pelvic fluid. IMPRESSION: Moderate left-sided hydronephrosis. Dictated by: Steven Marte D.O. on 05/07/2021 at 10:14 Approved by: Steven Marte D.O. on 05/07/2021 at 10:20
[2021-05-07] MEDS: ASPIRIN EC 81 MG TABLET PO (08:51)
[2021-05-07] MEDS: CLOPIDOGREL 75 MG TABLET PO (08:51)
[2021-05-07] MEDS: CARBIDOPA-LEVODOPA 25/100 TABLET 1 EACH PO ×3 (08:51→22:29)
--- NOTE | 2021-05-07 09:12 | PC.NURSE ---
Day shift: Pt off unit for MRI at approx 0905.
--- NOTE | 2021-05-07 10:07 | PC.NURSE ---
Day shift: Pt back on unit and tele at approx 1000. IV fluids infusing as well.
[2021-05-07] MEDS: Pimavanserin [Nuplazid] 34 mg capsule 34 EACH PO (11:06)
--- NOTE | 2021-05-07 11:43 | PT.IIE ---
Current Diagnoses Retention of urine, unspecified (05/07/21) Medical History (Last Reviewed 03/12/20 @ 19:05 by ROHAN Monte) No chronic problems Physical Therapy Inpatient Evaluation/Re-Eval M1 PT/OT-IP Prior Functional Status Start: 05/07/21 11:42 Freq: NEEDED Status: Active Protocol: Document 05/09/21 11:43 [facility] (Rec: 05/07/21 12:12 [facility] [id number]) Medical Review Prior Functional Status Medical History Reviewed Yes Diet/Fluid Consistency Regular Communication pt AOx3 doesn't remember falling but can state his name , the date, and where he is He has a history of parkinson' s and was found by his neighbors faced down at his home. Mobility and Gait pt able to communicate that he lives alone and does not use a AD Activities of Daily Living and IADL's I with all ADL's at home Social History Living Arrangements House Number of Floors (Floors) One Floor M1 PT/OT-IP Prior Functional Status Start: 05/08/21 11:44 Freq: NEEDED Status: Active Protocol: Document 05/08/21 11:44 CGR (Rec: 05/08/21 12:00 CGR [id number]) Medical Review Prior Functional Status Medical History Reviewed Yes Diet/Fluid Consistency Regular Communication pt AOx3 doesn't remember falling but can state his name , the date, and where he is He has a history of parkinson' s and was found by his neighbors faced down at his home. Mobility and Gait pt able to communicate that he lives alone and does not use a AD Activities of Daily Living and IADL's I with all ADL's at home Social History Living Arrangements House Number of Floors (Floors) One Floor Number of Stairs To Enter/Railing? 2 steps to enter from front or garage, no rails Home Environment Standard Height Toilet,Walk in Shower,Tub/Shower Employment Status Retired Additional Social History Comment Pt states that he no longer drives because they took away his license but that he is IND in all ADLs and functional mobility without AD. Neighbors and friends assist with rides for shopping and medical needs. M2 PT-IP Current Condition Start: 05/07/21 11:42 Freq: NEEDED Status: Active Protocol: Document 05/07/21 11:43 [facility] (Rec: 05/07/21 12:12 [facility] [id number]) Physical Therapy Current Condition Current Condition Evaluation Date 05/07/21 Treatment Diagnosis GLF, hx of parkinsons M3 PT-IP Subjective Start: 05/07/21 11:42 Freq: NEEDED Status: Active Protocol: Document 05/09/21 11:43 [facility] (Rec: 05/07/21 12:12 [facility] [id number]) Subjective Physical Therapy Visit Type Type Initial Evaluation Visit Start Time 11:00 Visit Stop Time 11:35 Total Visit Minutes 35 Physical Therapy Visit Comments Patient Comments pt is AOx3, he agrees to do PT Patient Goals pt would like to return home Therapy Pain Assessment Pain Present Pain Present Denied Pain M4 PT-IP Mobility and Gait Start: 05/07/21 11:42 Freq: NEEDED Status: Active Protocol: Document 05/09/21 11:43 [facility] (Rec: 05/07/21 12:12 [facility] [id number]) PT-Bed Mobility Assessment Rolling Type of Rolling Roll to Right Level of Assist Contact Guard Assistance Supine to Sit Supine to Sit Contact Guard Assistance Scooting Scooting to Edge of Bed Contact Guard Assistance PT-Transfer Assessment Sit to and From Stand Sit to and from Stand Minimal Assistance Equipment Transfer Assistive Device Gait Belt,Front Wheeled Walker Orthotic/Prosthetic Devices or Brace: No Transfers Transfer Destination Chair Transfer Technique Stand Step Pivot Transfer Ability Level of Assist Contact Guard Assistance Comments Mobility Comments pt was able to follow verbal cues for bed mobility and transfers, he transfered from sit-stand with fww and min A, pt ambulated in his room x 15 feet with fww and then to the bed side chair. I did note parkinsonian gait of freezing when he attempted to walk back to meet the chair. The freezing was temporary and after a few verbal cues he was able to walk back to safely sit in the bedside chair. Pt was reclined comfortably in the bedside chair, he was given a warm blanket, the chair alarm was placed, and call light within reach Gait Assessment Gait Gait Assistance Required: Contact Guard Assist Distance (Feet) 15 Able to Maintain Weight Bearing Status Yes During Gait Assistive Devices Assistive Device Front Wheeled Walker Orthotic/Prosthetic Devices or Brace: No Gait Deviations General Gait Pattern Antalgic Comments Gait Comments parkinsonian gait as mentioned above with a freezing of gait noted when Don was attempting to move backward to the bedside chair. He required a few verbal cues and then was able to resume his steps to the chair M5 PT-IP Objective Assessments Start: 05/07/21 11:42 Freq: NEEDED Status: Active Protocol: Document 05/07/21 11:43 [facility] (Rec: 05/07/21 12:12 [facility] [id number]) Gross Range of Motion Upper Extremity ROM Assessment Within Functional Limits Lower Extremity ROM Assessment Within Functional Limits Strength Upper Extremity Strength Assessment Within Functional Limits Lower Extremity Strength Assessment Within Functional Limits Comments Strength Comments there is tremors present with MMT for knee flexion and knee extension, pt able to hold resistance despite tremor M6 PT-IP Treatment Start: 05/07/21 11:42 Freq: NEEDED Status: Active Protocol: Document 05/08/21 12:02 AW (Rec: 05/08/21 12:25 AW [id number]) Physical Therapy Treatment Education Education Provided Safety Other Treatments Other Treatment Performed Educated pt and his daughter in law on recommendation for FWW. Both in agreement. M7 PT-IP Assessment and Plan Start: 05/07/21 11:42 Freq: NEEDED Status: Active Protocol: Document 05/09/21 11:43 [facility] (Rec: 05/07/21 12:12 [facility] [id number]) PT Summary Assessment and Plan Potential Rehabilitation Potential Good Status of Condition at Evaluation Evolving Summary Impairments Strength,Balance,Transfers, Gait Assessment Summary Ken is a 75 year old male with history parkinsons who lives alone and present to the ED after her was found by his neighbors on the floor after a undetermined amount of time. No obvious head injury and MRI has been done and was clear. He was found to have a UTI causing his confusion and fall. Pt was A0X3 for me but doesn't remember falling. He reports he does not use a AD at home. He was very willing to do PT. He was CGA for transfers out of bed, min A for ambulation with FWW in his room. He did show some signs of parkinsonian gait as he froze when attempting to take backward steps to his chair to sit. This improved with verbal cuing. He would benefit from a FWW for home use and for balance Goals Bed Mobility Goal Standby Assistance Transfer Goal Standby Assistance Gait Goal Standby Assistance,Front Wheel Walker Gait Distance 150 feet Other Goals pt is able to ambulate up 2-4 stairs safely with SBA Days to Meet Goals 5 Frequency of Treatment Frequency Of Treatment Once a Day Treatment Plan Physical Therapy Treatment Plan Bed Mobility Training,Transfer Training,Gait Training Other Recommendations and Next Treatment progress pt's distance with Focus gait training next visit, transfer training and pt needs to be able to step up 2 stairs to get into his house Discharge Recommendations PT Discharge Recommendations Home vs SNF Other Discharge Recommendations fww for home use Transportation Needs at Discharge Private Vehicle
--- NOTE | 2021-05-07 12:03 | DI.CT.S_ITS ---
PROCEDURE: CT KIDNEY URETER BLADDER (KUB) INDICATIONS: unilateral hydronephrosis on US, sepsis UTI TECHNIQUE: Axial sections were acquired from the lung bases to the pubic symphysis. Coronal and sagittal reformats were performed. For radiation dose reduction, the following was used: automated exposure control, adjustment of mA and/or kV according to patient size. COMPARISON: None. FINDINGS: Image quality: Excellent. Lung bases: Mild basilar atelectasis. Lung bases are otherwise clear. Heart: Heart size is within normal limits. There is likely mild pericardial thickening along the anterior heart border. URINARY: Right Kidney: Mild increased density of the medullary pyramids. No definite calcification. No hydronephrosis. Right Ureter: No hydroureter. Left Kidney: Increased density of the medullary pyramids. Multiple irregular fluid density lesions along the renal pelvis may represent renal sinus cyst versus hydronephrosis. Left Ureter: No hydroureter. Bladder: Decompressed with intraluminal Patel catheter. There is intraluminal air. There is likely wall thickening. Mild adjacent inflammation. ABDOMEN: Liver: Unremarkable. Gallbladder: Unremarkable Biliary ducts: Unremarkable. Pancreas: Unremarkable. Spleen: Unremarkable. Adrenal Glands: Unremarkable. Stomach and Bowel: Stomach and small bowel are unremarkable without evidence of obstruction. No evidence of appendicitis. There is moderate stool burden. Diffuse colonic diverticula. No current findings to suggest diverticulitis. Peritoneum: No abnormal intraperitoneal fluid. No free air. Ventral Wall: No hernia. Abdominal Nodes: No enlarged retroperitoneal or mesenteric lymph nodes. Vessels: Aorta and inferior vena cava are normal in size. PELVIS: Pelvic Organs: Unremarkable. hernia. Pelvic Nodes: Unremarkable. Miscellaneous: Small fat containing left inguinal hernia. Bones: Multilevel degenerative changes of the spine with near complete intervertebral disc space loss at L5-S1 and L2-L3 with vacuum disc phenomenon. Degenerative changes of the hips. IMPRESSION: Findings favoring left-sided renal pelvis cysts versus less likely hydronephrosis. The left ureter is normal in course and caliber . Bladder is decompressed with intraluminal Patel. There is likely diffuse wall thickening of the bladder with adjacent inflammation. Recommend correlation for cystitis. This may also be partially due to bladder outlet obstruction given prostatomegaly. Moderate stool burden. Diffuse colonic diverticulosis. Increased density of the medullary pyramids may be seen with dehydration versus early medullary nephrocalcinosis. Dictated by: Steven Marte D.O. on 05/07/2021 at 11:49 Approved by: Steven Marte D.O. on 05/07/2021 at 11:58
--- NOTE | 2021-05-07 12:24 | PC.NURSE ---
Day shift: Pt off unit for CT at approx 1225.
[2021-05-07] MEDS: ACETAMINOPHEN 325 MG TABLET 650 MG PO (22:28)
[2021-05-07] MEDS: ATORVASTATIN 20 MG TABLET 40 MG PO (22:29)
[2021-05-08] VITALS (14 sets, daily range): BP systolic 113–152; BP diastolic 44–68; PULSE 78–93; RESP 16–18; TEMP 36.1–37.7; O2SAT 94–100
[2021-05-08 06:07] LABS: Add Manual Diff / Slide Review NO; Basophils Absolute Auto 0 /uL (0-100); Eosinophils Absolute Auto 0 /uL (0-450); Eosinophils Percent Auto 0.3 % (2-4); Hematocrit 31.4 % (41-53); Hemoglobin 10.7 g/dL (13.5-17.5); Lymphocytes Absolute Auto 300 /uL (1100-4500); Lymphocytes Percent Auto 3.5 % (25-40); Mean Corpuscular HGB Conc 34.1 % (30-36); Mean Corpuscular Hemoglobin 31.6 PG (26-34); Mean Corpuscular Volume 92.6 fL (80-100); Monocytes Absolute Auto 500 /uL (0-900); Neutrophils Absolute Auto 7800 /uL (1500-7000); Neutrophils Percent Auto 90.2 % (50-75); Platelet Count 94 X10^3/uL (150-400); Red Cell Distribution Width 13.3 % (11.6-14.8); White Blood Cell Count 8.7 X10^3/uL (4.5-11.0)
[2021-05-08 06:20] LABS: Alanine Aminotransferase 28 IU/L (<50); Albumin 2.7 g/dL (3.5-5.0); Alkaline Phosphatase 178 U/L (38-126); Aspartate Aminotransferase 189 IU/L (17-59); BUN Creatinine Ratio 27.3 (6-22); Blood Urea Nitrogen 24 mg/dL (9-20); Carbon Dioxide 23 mmol/L (22-32); Chloride 107 mmol/L (98-107); Estimated Glomerular Filt Rate > 60.0 mL/min (>60); Globulin 2.7 g/dL (1.7-4.1); Glucose 100 mg/dL (80-110); HEMOLYSIS < 15 (0-50); Potassium 3.6 mmol/L (3.4-5.1); Sodium 135 mmol/L (137-145); Total Protein 5.4 g/dL (6.3-8.2)
[2021-05-08] MEDS: Pimavanserin [Nuplazid] 34 mg capsule 34 EACH PO (08:19)
[2021-05-08] MEDS: cefTRIAXone 1,000 MG in SODIUM CHLORIDE 0.9% 100 ML 200 ML IV (08:19)
[2021-05-08] MEDS: CARBIDOPA-LEVODOPA 25/100 TABLET 1 EACH PO ×3 (08:19→21:02)
[2021-05-08] MEDS: CLOPIDOGREL 75 MG TABLET PO (08:19)
[2021-05-08] MEDS: ASPIRIN EC 81 MG TABLET PO (08:19)
[2021-05-08] MEDS: SODIUM CHLORIDE 0.9% 1,000 ML 80 ML IV (11:00)
--- NOTE | 2021-05-08 11:23 | OT.IP.EVAL ---
Current Diagnoses Retention of urine, unspecified (05/07/21) Past Medical History (Last Reviewed 03/12/20 @ 19:05 by ROHAN Monte) No chronic problems Status post debridement of bone spur Status post hernia repair Surgical History (Last Reviewed 03/12/20 @ 19:05 by ROHAN Monte) Status post debridement of bone spur Status post hernia repair Occupational Therapy Inpatient Evaluation/Re-Eval M1 PT/OT-IP Prior Functional Status Start: 05/07/21 11:42 Freq: NEEDED Status: Active Protocol: Document 05/08/21 11:44 CGR (Rec: 05/08/21 12:00 CGR [id number]) Medical Review Prior Functional Status Medical History Reviewed Yes Diet/Fluid Consistency Regular Communication pt AOx3 doesn't remember falling but can state his name , the date, and where he is He has a history of parkinson' s and was found by his neighbors faced down at his home. Mobility and Gait pt able to communicate that he lives alone and does not use a AD Activities of Daily Living and IADL's I with all ADL's at home Social History Living Arrangements House Number of Floors (Floors) One Floor Number of Stairs To Enter/Railing? 2 steps to enter from front or garage, no rails Home Environment Standard Height Toilet,Walk in Shower,Tub/Shower Employment Status Retired Additional Social History Comment Pt states that he no longer drives because they took away his license but that he is IND in all ADLs and functional mobility without AD. Neighbors and friends assist with rides for shopping and medical needs. M1 PT/OT-IP Prior Functional Status Start: 05/08/21 11:44 Freq: NEEDED Status: Active Protocol: Document 05/08/21 11:44 CGR (Rec: 05/08/21 12:00 CGR [id number]) Medical Review Prior Functional Status Medical History Reviewed Yes Diet/Fluid Consistency Regular Communication pt AOx3 doesn't remember falling but can state his name , the date, and where he is He has a history of parkinson' s and was found by his neighbors faced down at his home. Mobility and Gait pt able to communicate that he lives alone and does not use a AD Activities of Daily Living and IADL's I with all ADL's at home Social History Living Arrangements House Number of Floors (Floors) One Floor Number of Stairs To Enter/Railing? 2 steps to enter from front or garage, no rails Home Environment Standard Height Toilet,Walk in Shower,Tub/Shower Employment Status Retired Additional Social History Comment Pt states that he no longer drives because they took away his license but that he is IND in all ADLs and functional mobility without AD. Neighbors and friends assist with rides for shopping and medical needs. M2 OT-IP Current Condition Start: 05/08/21 11:44 Freq: Status: Active Protocol: Document 05/08/21 11:44 CGR (Rec: 05/08/21 12:00 CGR [id number]) Occupational Therapy Current Condition Current Condition Evaluation Date 05/08/21 Treatment Diagnosis found down, sepsis, rhabdo with MIRZA, UTI Diagnosis Onset Date 05/07/21 M3 OT- IP Subjective and Pain Start: 05/08/21 11:44 Freq: Status: Active Protocol: Document 05/08/21 11:44 CGR (Rec: 05/08/21 12:00 CGR [id number]) OT- Subjective Occupational Therapy Visit Type Type Initial Evaluation Visit Start Time 10:52 Visit Stop Time 11:23 Total Visit Minutes 31 Notes Pt's daughter in law entered the room during the session. Occupational Therapy Visit Comments Patient Comments It feels good to be up. OT Pain Assessment Pain When Pain Assessed At Rest Pain Present Pain Present Denied Pain M4 OT- IP ADL's Start: 05/08/21 11:44 Freq: Status: Active Protocol: Document 05/08/21 11:44 CGR (Rec: 05/08/21 12:00 CGR [id number]) OT [id number] Comments OT Self-Feeding Comments Not meal time but pt states that he is eating well here. OT ADL-Grooming Comments OT Grooming Comments Pt declined, states that he performed this AM OT ADL-Oral Care Comments Oral Care Comments Pt declined, states that he performed this AM OT ADL-Dressing General Eval Lower Body Dressing Ability Total Assistance Areas Needing Assistance Socks OT ADL-Toileting General Evaluation Toileting Ability Standby Assistance Comments OT Toileting Comments Pt simulated toileting as pt currently with jaydon. OT ADL-Bathing Comments OT Bathing Comments Not performed at this time. M5 OT- IP IADL's Start: 05/08/21 11:44 Freq: Status: Active Protocol: Document 05/08/21 11:44 CGR (Rec: 05/08/21 12:00 CGR [id number]) OT-Instrumental Activities of Daily Living Deficits IADL Deficits Identified Deficits Home Safety Awareness Awareness of Need for Assistance at Home Decreased Awareness Ability to Problem Solve Emergency Unable to Problem Solve Situations Medication Management Medication Management Comments Concerns for pt's ability to perform safely at this time Money Management Money Management Comments Concerns for pt's ability to perform safely at this time Meal Preparation Meal Preparation Comments Concerns for pt's ability to perform safely at this time Web[employer] Process Server Developer Websphere Process Server Developer Comments Concerns for pt's ability to perform safely at this time Driving Driving Comments Pt does not drive at baseline. M6 OT- IP Functional Cognition Start: 05/08/21 11:44 Freq: Status: Active Protocol: Document 05/08/21 11:44 CGR (Rec: 05/08/21 12:00 CGR [id number]) Cognitive Factors Limiting Selfcare Function Cognitive Ability Level of Alertness Alert,Confusional State Patient Orientation Name,Year,Situation Attention Span Ability Unable to Focus,Unable to Sustain Attention Ability to Follow Commands Able to Follow One Step Commands with Increased Time, Able to Follow One Step Commands with Repetition Memory Description Immediate Intact,Short Term Impaired Safety Awareness Underestimates Need for Assistance Problem Solving Ability Unable to Identify Errors, Needs Assist to Identify Solutions Cognitive Comments Cognitive Assessment Comments Pt was unable to state the city that he is in or the city that he lives in. He was able to state that yesterday was halloween 05/07 but then states that it must be the nd. He was unable to problem solve the date with extra cues. OT- Vision and Hearing OT- Hearing Assessment OT- Hearing Assessment WFL OT- Vision Assessment Visual Acuity Glasses All The Time Visual Attentiveness WFL Occular Pursuits WFL Visual Convergence WFL M7 OT- IP Mobility and Balance Start: 05/08/21 11:44 Freq: Status: Active Protocol: Document 05/08/21 11:44 CGR (Rec: 05/08/21 12:00 CGR [id number]) OT- Bed Mobility Assessment Rolling Level of Assistance Standby Assistance Supine to Sit Supine to Sit Assist Standby Assistance Scooting Scooting to Edge of Bed Standby Assistance OT-Transfer Assessment Sit to and From Stand Sit to and from Stand Contact Guard Assistance Transfers Transfer Ability Minimal Assistance Technique Transfer Destination Bed,Chair,Toilet Transfer Technique Stand Step Pivot Devices Transfer Assistive Devices Gait Belt,Front Wheeled Walker Comments Mobility Comments Pt ambulated around the room with noted shaky steps and one LOB requiring mod a. Pt needed min a for use of the walker and following directions to sit on the toielt and sit in the chair. OT- Gait Assessment Gait Gait Assistance Required: Minimum Assistance Assistive Devices Assistive Device Gait Belt,Front Wheeled Walker OT- Balance Assessment Sitting Balance and Reactions Static Sitting Balance Ability Good Dynamic Sitting Balance Ability Good M8 OT- IP Objective Assessments Start: 05/08/21 11:44 Freq: Status: Active Protocol: Document 05/08/21 11:44 CGR (Rec: 05/08/21 12:00 CGR [id number]) OT Gross Range of Motion Upper Extremity Range of Motion Assessment Within Functional Limits OT Strength Upper Extremity Strength Assessment Within Functional Limits Comments Strength Comments grossly 4+/5 OT- Coordination Assessment Upper Extremity Finger to Nose Test Within Functional Limits Finger Tapping Test Bilateral UE Impaired Comments Coordination Comments Poor coordination for thumb to finger OT-Muscle Tone Assessment Muscle Tone WNL Yes OT Sensation Assessment Edema Edema Absent M9 OT- IP Assessment and Plan Start: 05/08/21 11:44 Freq: Status: Active Protocol: Document 05/08/21 11:44 CGR (Rec: 05/08/21 12:00 CGR [id number]) OT Summary Assessment and Plan Potential Rehabilitation Potential Excellent Analytic Complexity at Evaluation Moderate Summary OT Impairments Balance,Coordination, Functional Cognition, Functional Mobility,Grooming, Dressing,Toileting,Bathing, Toilet Transfers,Shower Transfers,Activity Tolerance Progress Towards Goals Slow Progress due to Activity Tolerance,Slow Progress due to Cognition Assessment Summary Pt presents as a moderate complexity evaluation s/p admit for being found down. He was found to have a UTI and meet criteria for sepsis. Pt appears confused with inability to problem solve simple tasks. He is having difficulty following simple commands at times. Pt will benefit from continued OT services to address physical abilities to provide self care and cog assessment if he doesn't clear in the next few days. If he were to discharge today recommendation would be for SNF but pt is likely to clear and be appropriate for d /c home. Goals Self-Feeding Goal Independent Grooming Goal Independent Dressing Goal Independent Toileting Goal Independent Bathing Goal Independent Toilet Transfer Goal Independent Shower Transfer Goal Independent Days to Meet Goals 5 Frequency of Treatment Frequency Of Treatment Once a Day Treatment Plan OT Treatment Plan ADL Training,Functional Cognition Training,Functional Mobility,Patient/Family Education,Discharge Planning Other Treatment Recommendations and Next shower, dressing Treatment Focus Discharge Recommendations OT Discharge Recommendations Home vs SNF Other Discharge Recommendations recommendation for d/c today would be to SNF. Pt is likely to progress to being safe for discharge home. Home Equipment Needs TBD Transportation Needs at Discharge Private Vehicle
[2021-05-08 11:51] LABS: Creatine Kinase 1224 U/L (55-170)
--- NOTE | 2021-05-08 12:02 | PT.IPTN ---
Current Diagnoses Retention of urine, unspecified (05/07/21) Physical Therapy Treatment Note M2 PT-IP Current Condition Start: 05/07/21 11:42 Freq: NEEDED Status: Active Protocol: Document 05/07/21 11:43 [facility] (Rec: 05/07/21 12:12 [facility] [id number]) Physical Therapy Current Condition Current Condition Evaluation Date 05/07/21 Treatment Diagnosis GLF, hx of parkinsons M3 PT-IP Subjective Start: 05/07/21 11:42 Freq: NEEDED Status: Active Protocol: Document 05/08/21 12:02 AW (Rec: 05/08/21 12:25 AW [id number]) Subjective Physical Therapy Visit Type Type Treatment Note Visit Start Time 11:37 Visit Stop Time 12:02 Total Visit Minutes 25 Notes Pt's daughter in law was present Number of AIR PLANT ENGINEER Visits 0 Physical Therapy Visit Comments Patient Comments Pt is up in the chair and willing to participate with PT Patient Goals Pt is open to rehab stay, admits to being more confused and less steady recently. Therapy Pain Assessment Pain Present Pain Present Denied Pain M4 PT-IP Mobility and Gait Start: 05/07/21 11:42 Freq: NEEDED Status: Active Protocol: Document 05/08/21 12:02 AW (Rec: 05/08/21 12:25 AW [id number]) PT-Transfer Assessment Sit to and From Stand Sit to and from Stand Contact Guard Assistance,Use of Upper Extremities Equipment Transfer Assistive Device Gait Belt,Front Wheeled Walker Orthotic/Prosthetic Devices or Brace: No Transfers Transfer Destination Chair Transfer Technique ambulated with FWW Transfer Ability Level of Assist Contact Guard Assistance Comments Mobility Comments Pt stood from the chair CGA and used FWW to steady himself . He ambulated 130 feet to the therapy stairs with FWW SBA increasing to CGA with increased distance. After stair training, he walked back to the room in similar fashion, transferring to the chair CGA and cues needed to use UE for controlled descent. Pt then completed 8 sit <> stand for repetition and BLE strengthening with good carryover of technique. Pt was left in chair with alarm on and call light in reach. Gait Assessment Gait Gait Assistance Required: Standby Assistance,Contact Guard Assist Distance (Feet) 260 Assistive Devices Assistive Device Gait Belt,Front Wheeled Walker Orthotic/Prosthetic Devices or Brace: No Gait Deviations General Gait Pattern Festinating,Flexed Trunk Factors Limiting Gait Function Factors Limiting Gait Function Decreased Strength,Poor Balance,Poor Safety Awareness Comments Gait Comments Pt ambulated with FWW SBA up to CGA with increased distance . His step lengths were inconsistent and his feet did not pass one another. When verbally cued, pt was able to improve step length and gait speed, stating he felt more confident with the FWW than without. Stair Climbing Assessment Evaluation Level of Assist On Stairs Contact Guard Assistance, Minimal Assistance Devices Stair Climbing Assistive Devices None Technique/Endurance Stair Climbing Direction Ascend and Descend Stair Climbing Technique Step Over Step Number of Steps Climbed 3 Stair Climbing Set # Repetitions (reps) 1 Comments Stair Climbing Comments Up with CGA, down with min assist and cues for foot clearance. Pt had LOB on descent requiring min assist for recovery. M5 PT-IP Objective Assessments Start: 05/07/21 11:42 Freq: NEEDED Status: Active Protocol: Document 05/07/21 11:43 [facility] (Rec: 05/07/21 12:12 [facility] [id number]) Gross Range of Motion Upper Extremity ROM Assessment Within Functional Limits Lower Extremity ROM Assessment Within Functional Limits Strength Upper Extremity Strength Assessment Within Functional Limits Lower Extremity Strength Assessment Within Functional Limits Comments Strength Comments there is tremors present with MMT for knee flexion and knee extension, pt able to hold resistance despite tremor M6 PT-IP Treatment Start: 05/07/21 11:42 Freq: NEEDED Status: Active Protocol: Document 05/08/21 12:02 AW (Rec: 05/08/21 12:25 AW [id number]) Physical Therapy Treatment Education Education Provided Safety Other Treatments Other Treatment Performed Educated pt and his daughter in law on recommendation for FWW. Both in agreement. M7 PT-IP Assessment and Plan Start: 05/07/21 11:42 Freq: NEEDED Status: Active Protocol: Document 05/08/21 12:02 AW (Rec: 05/08/21 12:25 AW [id number]) PT Summary Assessment and Plan Potential Rehabilitation Potential Good Status of Condition at Evaluation Evolving Summary Impairments Strength,Balance,Transfers, Gait Progress Towards Goals Slow Progress due to Medical Issues Assessment Summary Don improved his gait distance today using FWW and agrees he is more confident and safer with use of FWW. He had a LOB on stair descent requiring min assist. He is debilitated compared with his baseline mobility and lives alone. He would benefit from SNF rehab to improve strength and mobility independence. Goals Bed Mobility Goal Standby Assistance Transfer Goal Standby Assistance Gait Goal Standby Assistance,Front Wheel Walker Gait Distance 150 feet Other Goals pt is able to ambulate up 2-4 stairs safely with SBA Days to Meet Goals 5 Frequency of Treatment Frequency Of Treatment Once a Day Treatment Plan Physical Therapy Treatment Plan Bed Mobility Training,Transfer Training,Gait Training Other Recommendations and Next Treatment reinforce gait training with Focus FWW; stairs Precautions Other Precautions falls Discharge Recommendations PT Discharge Recommendations SNF Rehab,Home vs SNF Other Discharge Recommendations fww for home use Transportation Needs at Discharge Private Vehicle
[2021-05-08] MEDS: ACETAMINOPHEN 325 MG TABLET 650 MG PO (15:31)
--- NOTE | 2021-05-08 15:33 | PM.PN.1 ---
Subjective Subjective Date Patient Seen: 05/08/21 Time Patient Seen: 12:30 Interval history: Today he feels much improved. He feels a little weak, but no other complaints. Exam Vital Signs (past 8 hours): - 05/08/21 08:00 05/08/21 11:20 05/08/21 12:00 Temperature 99.4 F 99.1 F Pulse Rate 78 93 H Respiratory Rate 18 16 Blood Pressure 130/59 L 134/44 L Pulse Oximetry 99 100 100 05/08/21 15:00 05/08/21 15:31 Temperature 99.9 F H 99.9 F H Pulse Rate 91 H Respiratory Rate 16 Blood Pressure 122/56 L Pulse Oximetry 99 Oxygen Delivery Method Room Air Oxygen Flow Rate 0 Narrative Exam Narrative: GEN: no acute distress CV: regular rate and rhythm with no murmurs PULM: clear bilaterally, no wheezes, rhonchi, rales ABD: soft, nontender, nondistended, no organomegaly EXT: warm and well perfused with no edema NEURO: awake and alert with no focal deficits Objective Labs Result Diagrams: 05/08/21 05:55 05/08/21 05:55 Labs: Laboratory Results - last 24 hr 05/08/21 05/08/21 05/08/21 05:55 05:55 06:00 WBC 8.7 RBC 3.40 L Hgb 10.7 L Hct 31.4 L MCV 92.6 MCH 31.6 MCHC 34.1 RDW 13.3 Plt Count 94 L Neut % (Auto) 90.2 H Lymph % (Auto) 3.5 L [place] % (Auto) 6.0 Eos % (Auto) 0.3 L Baso % (Auto) 0.0 Neut # (Auto) 7800 H Lymph # (Auto) 300 L [place] # (Auto) 500 Eos # (Auto) 0 Baso # (Auto) 0 Sodium 135 L Potassium 3.6 Chloride 107 Carbon Dioxide 23 BUN 24 H Creatinine 0.88 Estimated GFR > 60.0 BUN/Creatinine Ratio 27.3 H Glucose 100 Calcium 8.0 L Total Bilirubin 1.0 AST 189 H ALT 28 Alkaline Phosphatase 178 H D Total Creatine Kinase 1224 H D Total Protein 5.4 L Albumin 2.7 L Globulin 2.7 Albumin/Globulin Ratio 1.0 ON LICENSE OF [facility] Medical History (Updated 05/07/21 @ 02:32 by TOI Villalobos-) No chronic problems Surgical History Status post debridement of bone spur Status post hernia repair Social History Smoking Status: Never smoker Assessment & Plan Assessment & Plan narrative: Mr. Ennis is a 75M with [facility] parkinsons who lives alone and was brought in to the ED after being found down for an undetermined amount of time. 1.Loss of consciousness, found down (undetermined amount of time), encephalopathy secondary to sepsis with rhabdomyolysis resulting in MIRZA likely secondary to urinary retention and UTI, acute on chronic -for UTI continue antibiotics with cultures pending -WBC initially 20, but now resolved -Dark urine, urinalysis positive for bacteria, urine culture pending -total CK 2589, improved with IV fluids -Head CT negative, MR head with no acute process -ECHO with no acute process -Patel catheter place management-patient may require out patient evaluation by urology for urinary retention. 2. Parkinson's disease, acute on chronic, present on admission -continue patient's carbidopa-levodopa, Pimavanserin Dispo: patient medically stable for discharge, discharge pending PT/OT eval for possible SNF Time Spent With Patient Critical Care time: I spent a total of [] minutes of critical care time on this patient's care today; this time is exclusive of procedural time.
[2021-05-08] MEDS: ATORVASTATIN 20 MG TABLET 40 MG PO (21:02)
[2021-05-08] MEDS: MAGNESIUM HYDROXIDE 30 ML UDC PO (21:03)
[2021-05-09] VITALS (7 sets, daily range): BP systolic 122–151; BP diastolic 56–69; PULSE 81–88; RESP 16–19; TEMP 36.4–37.6; O2SAT 97–100
[2021-05-09] MEDS: SODIUM CHLORIDE 0.9% 1,000 ML 80 ML IV ×2 (00:30→15:15)
--- NOTE | 2021-05-09 06:37 | PC.NURSE ---
Pt ashley Beltran called multiple times tonight wanting to speak to the doctor or neighborhood planner. She stated she was here yesterday for 2 hours and wasn't able to speak to anybody. will continue to monitor.
[2021-05-09 06:58] LABS: Add Manual Diff / Slide Review NO; Basophils Absolute Auto 0 /uL (0-100); Basophils Percent Auto 0.3 % (0-2); Eosinophils Absolute Auto 0 /uL (0-450); Eosinophils Percent Auto 0.5 % (2-4); Hematocrit 34.7 % (41-53); Lymphocytes Absolute Auto 400 /uL (1100-4500); Lymphocytes Percent Auto 7.4 % (25-40); Mean Corpuscular HGB Conc 34.5 % (30-36); Mean Corpuscular Hemoglobin 31.4 PG (26-34); Mean Corpuscular Volume 91.1 fL (80-100); Monocytes Absolute Auto 300 /uL (0-900); Monocytes Percent Auto 5.6 % (3-14); Neutrophils Absolute Auto 5200 /uL (1500-7000); Neutrophils Percent Auto 86.2 % (50-75); Platelet Count 122 X10^3/uL (150-400); Red Cell Distribution Width 13.6 % (11.6-14.8)
[2021-05-09 07:07] LABS: Alanine Aminotransferase 141 IU/L (<50); Albumin 2.9 g/dL (3.5-5.0); Albumin Globulin Ratio 1.1 (1.0-2.8); Alkaline Phosphatase 309 U/L (38-126); Aspartate Aminotransferase 304 IU/L (17-59); BUN Creatinine Ratio 22.4 (6-22); Bilirubin Total 1.4 mg/dL (0.2-1.3); Blood Urea Nitrogen 19 mg/dL (9-20); Calcium 8.3 mg/dL (8.4-10.2); Carbon Dioxide 25 mmol/L (22-32); Chloride 107 mmol/L (98-107); Estimated Glomerular Filt Rate > 60.0 mL/min (>60); Globulin 2.6 g/dL (1.7-4.1); Glucose 100 mg/dL (80-110); HEMOLYSIS < 15 (0-50); Potassium 3.8 mmol/L (3.4-5.1); Sodium 137 mmol/L (137-145); Total Protein 5.5 g/dL (6.3-8.2)
--- NOTE | 2021-05-09 07:54 | DI.MRI.S_ITS ---
PROCEDURE: MR ABDOMEN WO CON INDICATIONS: rising lfts TECHNIQUE: Coronal HASTE through the abdomen, axial 2-D FLASH in- and [id number], and breath-hold axial T2 haste. COMPARISON: [facility], US, US RENAL COMPLETE, 05/07/2021, 10:37. [facility], US, US ABDOMEN LIMITED, 05/07/2021, 1:28. [facility], CT, CT KIDNEY URETER BLADDER (KUB), 05/07/2021, 12:20. FINDINGS: Image quality: Poor. Pancreas and biliary system: No intrahepatic biliary ductal dilatation. No extrahepatic biliary ductal dilatation. No pancreatic ductal dilatation. No T2 pancreatic edema signal. No peripancreatic fluid collection. Gallbladder is distended. No gallstones. Other solid organs: Liver is normal in size. No T2 hyperintense lesion. Spleen is normal in size. No adrenal nodules. Rounded T2 hyperintense foci within the left renal pelvis, unchanged. Nodes and vessels: No retroperitoneal or mesenteric adenopathy by size criteria. Aorta and inferior vena cava are normal in size. Bowel and peritoneum: Unenhanced bowel loops are normal in caliber. Diverticulosis. No free fluid. Lung bases: Suspect trace pleural effusions. Heart size is within normal limits. Gynecomastia. Bones and soft tissues: No ventral hernias. Bone marrow is of normal overall signal. IMPRESSION: Image quality is poor with several sequences degraded by artifact. 1. No biliary or pancreatic ductal dilatation identified. 2. Suspect trace pleural effusions. 3. Suspect left kidney peripelvic cysts. No convincing hydronephrosis. Dictated by: Tr Zelaya M.D. on 05/09/2021 at 9:11 Approved by: Tr Zelaya M.D. on 05/09/2021 at 9:22
[2021-05-09] MEDS: ASPIRIN EC 81 MG TABLET PO (09:09)
[2021-05-09] MEDS: CARBIDOPA-LEVODOPA 25/100 TABLET 1 EACH PO ×3 (09:09→21:32)
[2021-05-09] MEDS: ENOXAPARIN 40 MG/0.4 ML SYRINGE SUBCUT (09:09)
[2021-05-09] MEDS: Pimavanserin [Nuplazid] 34 mg capsule 34 EACH PO (09:10)
[2021-05-09] MEDS: cefTRIAXone 1,000 MG in SODIUM CHLORIDE 0.9% 100 ML 200 ML IV (09:10)
[2021-05-09 10:30] LABS: Creatine Kinase 515 U/L (55-170)
--- NOTE | 2021-05-09 10:40 | CM.DANOTE ---
Addendum entered by Tigist Noonan 05/09/21 18:03: [facility] has accepted. Daughter/Ruby notified and would like daily updates. Patient will need to bring his own home medication of (Nuplazid 34mg 1x daily). Daughter aware and will refill script if patient remains at [facility] past refill date. PASSR complete. Anticipate d/c on 05-10 or 05-11 pending medical status. P: [facility] when stable. CM team to keep daughter or son up to date. Patient provided CM team with verbal permission. KJS Original Note: DCP/Assessment: Reviewed chart. Patient is a 75yr old male admitted to [facility] after GLF. PCP is Dr. Altamirano. Primary payor is 1)Medicare 2)[facility]. Patient evaluated by therapy and SNF currently recommended. Met with patient and DIL/Ruby explained CM/SW role. Ruby expresses concern that she has not seen or spoken to provider. Ruby worries that the information patient is receiving during hospitalization he is not able retain and provide to family. Current recommendation is SNF. Patient aware and agreeable to SNF. First SNF choice is [facility]. LUZ MARINA reports that after therapy completed family is planning to move patient to [facility] in the [facility] area. Prior to admit patient did not drive but was I with ADL's. P: [facility] evaluating for admit. CM team following closely and keeping in touch with family per patient's request. Provider made aware that pt/family would like medical update. [facility] Discharge Planning/Care Management Advanced directive, confirm from FAMILY Start: 05/07/21 02:20 Freq: Q24H Status: Complete Protocol: Document 05/07/21 02:20 JOSE CARLOS (Rec: 05/07/21 03:23 JOSE CARLOS [id number]) Advance Directive, confirm on record Time 03:00 Person contacted Ruby Ennis Copy received No Document 05/08/21 02:20 JOSE CARLOS (Rec: 05/08/21 06:27 JOSE CARLOS [id number]) Advance Directive, confirm on record Time 03:00 Person contacted Ruby Ennis Copy received No Document 05/08/21 13:44 TLS (Rec: 05/08/21 13:44 TLS [id number]) Advance Directive, confirm on record Time 03:00 Person contacted Rubyantoine Ennis Copy received Yes CM Discharge Assessment Start: 05/09/21 09:26 Freq: Status: Active Protocol: Document 05/09/21 10:30 KJGage (Rec: 05/09/21 10:40 KJGage [id number]) Discharge Planning Assessment Assigned Intellectual Property Legal Assistant JOSHUA Haryd Contact Information Ruby Ennis (daughter) ph# [phone] Advance Directives? Yes: will request from family Advance Directives on File No History Provided By Patient,Family Member,Medical Record Prior Living Arrangements House Household Members none Type of transporation used prior to Relies on Others admit Independent with ADL's Yes Is patient alert and oriented? Yes Needs Assistance With Home Chores / Shopping Caregiver for Another No Patient/Family Preference Prison Facility Barriers to Discharge No Discharge Plan Prison Facility Transportation Arrangement Facility or family Referrals Initiated Prison SNF/HH Preference [facility] Contact Name/Phone December ph# [phone] Has Agency SNF been contacted Yes Whiteboard Updated in Patient Room with Yes name and ext. # of Intellectual Property Legal Assistant Review Status In Process Next Review Type Continued Stay Review
--- NOTE | 2021-05-09 10:42 | PT.IPTN ---
Current Diagnoses Retention of urine, unspecified (05/07/21) Physical Therapy Treatment Note M2 PT-IP Current Condition Start: 05/07/21 11:42 Freq: NEEDED Status: Active Protocol: Document 05/07/21 11:43 [facility] (Rec: 05/07/21 12:12 [facility]H [id number]) Physical Therapy Current Condition Current Condition Evaluation Date 05/07/21 Treatment Diagnosis GLF, hx of parkinsons M3 PT-IP Subjective Start: 05/07/21 11:42 Freq: NEEDED Status: Active Protocol: Document 05/09/21 10:12 KS (Rec: 05/09/21 12:57 KS [id number]) Subjective Physical Therapy Visit Type Type Treatment Note Visit Start Time 10:12 Visit Stop Time 10:42 Total Visit Minutes 30 Notes Pt's daughter in law was present Number of DISTRIBUTION SALES MANAGER Visits 1 Physical Therapy Visit Comments Patient Comments Pt willing to participate with PT Patient Goals Pt is open to rehab stay, admits to being more confused and less steady recently. M4 PT-IP Mobility and Gait Start: 05/07/21 11:42 Freq: NEEDED Status: Active Protocol: Document 05/09/21 10:12 KS (Rec: 05/09/21 12:57 KS [id number]) PT-Bed Mobility Assessment Supine to Sit Supine to Sit Contact Guard Assistance,1 Person Assistance Scooting Scooting to Edge of Bed Contact Guard Assistance PT-Transfer Assessment Sit to and From Stand Sit to and from Stand Contact Guard Assistance,Use of Upper Extremities Equipment Transfer Assistive Device Gait Belt,Front Wheeled Walker Orthotic/Prosthetic Devices or Brace: No Transfers Transfer Destination Chair Transfer Technique ambulated with FWW Transfer Ability Level of Assist Contact Guard Assistance Comments Mobility Comments Pt in bed upon arrival from therapy. CGA for sup<>sit and scooting EOB. Pt sit<>stand w/ FWW CGA and then ambulated ~ [address] w/ FWW CGA 1x short standing rest break. Pts DIL present and managed IV pole. Pt required cues for heel toe walking and increased stride length, but demonstrated good use of FWW. Pt and DIL both state pt is more steady w/ FWW. Upon return to room, pt transfers to chair CGA and mod cues for sequencing and FWW management. Pt then stated he needed to use toilet, ambualted to toilet w/ FWW and stand<>sit Min A and cues. Pt left on toilet w/ DIL present and nursing aware. Gait Assessment Gait Gait Assistance Required: Contact Guard Assist,1 Person Assist Distance (Feet) 260 Assistive Devices Assistive Device Gait Belt,Front Wheeled Walker Orthotic/Prosthetic Devices or Brace: No Gait Deviations General Gait Pattern Festinating,Flexed Trunk Factors Limiting Gait Function Factors Limiting Gait Function Decreased Strength,Poor Balance,Poor Safety Awareness Comments Gait Comments Pt ambulated ~260 ft w/ FWW and CGA, required cues for increased step length and heel toe walking, able to improve with cues but needed further cueing to maintain. Stair Climbing Assessment Evaluation Level of Assist On Stairs Contact Guard Assistance, Minimal Assistance Devices Stair Climbing Assistive Devices None M5 PT-IP Objective Assessments Start: 05/07/21 11:42 Freq: NEEDED Status: Active Protocol: Document 05/07/21 11:43 [facility] (Rec: 05/07/21 12:12 AM[facility] [id number]) Gross Range of Motion Upper Extremity ROM Assessment Within Functional Limits Lower Extremity ROM Assessment Within Functional Limits Strength Upper Extremity Strength Assessment Within Functional Limits Lower Extremity Strength Assessment Within Functional Limits Comments Strength Comments there is tremors present with MMT for knee flexion and knee extension, pt able to hold resistance despite tremor M6 PT-IP Treatment Start: 05/07/21 11:42 Freq: NEEDED Status: Active Protocol: Document 05/09/21 10:12 KS (Rec: 05/09/21 12:57 KS [id number]) Physical Therapy Treatment Education Education Provided Safety M7 PT-IP Assessment and Plan Start: 05/07/21 11:42 Freq: NEEDED Status: Active Protocol: Document 05/09/21 10:12 KS (Rec: 05/09/21 12:57 KS [id number]) PT Summary Assessment and Plan Potential Rehabilitation Potential Good Status of Condition at Evaluation Evolving Summary Impairments Strength,Balance,Transfers, Gait Progress Towards Goals Slow Progress due to Medical Issues Assessment Summary Pt CGA for bed mobility, transfers and ambulation w/ FWW. Occasionally needing increased assist and cues for FWW management when transferring. Pt able to tolerate ~260 ambulation w/ FWW and cues for increased stride and heel toe walking. Pt is still far from his baseline mobility and lives alone. He would benefit from SNF rehab to improve strength and mobility. Goals Bed Mobility Goal Standby Assistance Transfer Goal Standby Assistance Gait Goal Standby Assistance,Front Wheel Walker Gait Distance 150 feet Other Goals pt is able to ambulate up 2-4 stairs safely with SBA Days to Meet Goals 5 Frequency of Treatment Frequency Of Treatment Once a Day Treatment Plan Physical Therapy Treatment Plan Bed Mobility Training,Transfer Training,Gait Training Other Recommendations and Next Treatment reinforce gait training with Focus FWW; stairs Precautions Other Precautions falls Discharge Recommendations PT Discharge Recommendations SNF Rehab,Home vs SNF Other Discharge Recommendations fww for home use, DIL will obtain Transportation Needs at Discharge Private Vehicle
--- NOTE | 2021-05-09 12:13 | OT.IP.TRT ---
Current Diagnoses Retention of urine, unspecified (05/07/21) Occupational Therapy Treatment Note M2 OT-IP Current Condition Start: 05/08/21 11:44 Freq: Status: Active Protocol: Document 05/08/21 11:44 CGR (Rec: 05/08/21 12:00 CGR [id number]) Occupational Therapy Current Condition Current Condition Evaluation Date 05/08/21 Treatment Diagnosis found down, sepsis, rhabdo with MIRZA, UTI Diagnosis Onset Date 05/07/21 M3 OT- IP Subjective and Pain Start: 05/08/21 11:44 Freq: Status: Active Protocol: Document 05/09/21 12:13 CCC (Rec: 05/09/21 12:23 CCC [id number]) OT- Subjective Occupational Therapy Visit Type Type Treatment Note Visit Start Time 11:45 Visit Stop Time 12:13 Total Visit Minutes 28 Occupational Therapy Visit Comments Patient Comments Pt states not wanting to get up at this time as just worked with [employer] earlier. Pt agreed to do cognitive assessment. Pt's daughter in the room. Patient/Caregiver Goals Pt realizes that he is not able to care for himself at this time. M4 OT- IP ADL's Start: 05/08/21 11:44 Freq: Status: Active Protocol: Document 05/08/21 11:44 CGR (Rec: 05/08/21 12:00 CGR [id number]) OT [id number] Comments OT Self-Feeding Comments Not meal time but pt states that he is eating well here. OT ADL-Grooming Comments OT Grooming Comments Pt declined, states that he performed this AM OT ADL-Oral Care Comments Oral Care Comments Pt declined, states that he performed this AM OT ADL-Dressing General Eval Lower Body Dressing Ability Total Assistance Areas Needing Assistance Socks OT ADL-Toileting General Evaluation Toileting Ability Standby Assistance Comments OT Toileting Comments Pt simulated toileting as pt currently with jaydon. OT ADL-Bathing Comments OT Bathing Comments Not performed at this time. M5 OT- IP IADL's Start: 05/08/21 11:44 Freq: Status: Active Protocol: Document 05/08/21 11:44 CGR (Rec: 05/08/21 12:00 CGR [id number]) OT-Instrumental Activities of Daily Living Deficits IADL Deficits Identified Deficits Home Safety Awareness Awareness of Need for Assistance at Home Decreased Awareness Ability to Problem Solve Emergency Unable to Problem Solve Situations Medication Management Medication Management Comments Concerns for pt's ability to perform safely at this time Money Management Money Management Comments Concerns for pt's ability to perform safely at this time Meal Preparation Meal Preparation Comments Concerns for pt's ability to perform safely at this time Rn Baby Rn Baby Comments Concerns for pt's ability to perform safely at this time Driving Driving Comments Pt does not drive at baseline. M6 OT- IP Functional Cognition Start: 05/08/21 11:44 Freq: Status: Active Protocol: Document 05/09/21 12:13 [facility] (Rec: 05/09/21 12:23 CCC [id number]) Cognitive Factors Limiting Selfcare Function Cognitive Ability Level of Alertness Alert,Confusional State Patient Orientation Name,Age,Birthday,Month,Date, Year,Day of Week,Place, Situation Attention Span Ability Capable of Focused Attention, Capable of Sustained Attention Ability to Follow Commands Able to Follow One Step Commands Memory Description Short Term Impaired,Working Impaired Safety Awareness Underestimates Need for Assistance Problem Solving Ability Unable to Identify Errors, Needs Assist to Identify Solutions Executive Function Ability Unable to Switch Focus,Unable to Filter Distractions,Unable to Organize Plans,Unable to Remember Details Cognitive Tests SLUMS Pt's daughter states in general pt does not do well on the cognitive tests but able to function better at home. Pt scored 7/30 and only able to states the day of the week, year, state, and able to state 13 animals in one minute , and able to draw an x on the triangle and pick out the largest shape. Cognitive Comments Cognitive Assessment Comments Pt states prior pay the bills by check and takes medication by putting them in small cups. Pt states able to function at home as he has a set routine. At this time pt would benefit from 28/01 assist for all needs. Start: 05/08/21 11:44 Freq: Status: Active Protocol: Document 05/08/21 11:44 CGR (Rec: 05/08/21 12:00 CGR [id number]) OT Gross Range of Motion Upper Extremity Range of Motion Assessment Within Functional Limits OT Strength Upper Extremity Strength Assessment Within Functional Limits Comments Strength Comments grossly 4+/5 OT- Coordination Assessment Upper Extremity Finger to Nose Test Within Functional Limits Finger Tapping Test Bilateral UE Impaired Comments Coordination Comments Poor coordination for thumb to finger OT-Muscle Tone Assessment Muscle Tone WNL Yes OT Sensation Assessment Edema Edema Absent M9 OT- IP Assessment and Plan Start: 05/08/21 11:44 Freq: Status: Active Protocol: Document 05/09/21 12:13 [facility] (Rec: 05/09/21 12:23 [facility] [id number]) OT Summary Assessment and Plan Potential Rehabilitation Potential Excellent Analytic Complexity at Evaluation Moderate Summary OT Impairments Balance,Coordination, Functional Cognition, Functional Mobility,Grooming, Dressing,Toileting,Bathing, Toilet Transfers,Shower Transfers,Activity Tolerance Progress Towards Goals Slow Progress due to Activity Tolerance,Slow Progress due to Cognition Assessment Summary Pt just scored 7/30 on the SLUMS which implies dementia, however pt has sepsis which may also be affecting his cognition. Pt will benefit from skilled rehab prior to going home. Goals Self-Feeding Goal Independent Grooming Goal Independent Dressing Goal Independent Toileting Goal Independent Bathing Goal Independent Toilet Transfer Goal Independent Shower Transfer Goal Independent Days to Meet Goals 10 Frequency of Treatment Frequency Of Treatment Once a Day Treatment Plan OT Treatment Plan ADL Training,Functional Cognition Training,Functional Mobility,Patient/Family Education,Discharge Planning Other Treatment Recommendations and Next shower, dressing Treatment Focus Discharge Recommendations OT Discharge Recommendations SNF Rehab Transportation Needs at Discharge Wheelchair/Cabulance
--- NOTE | 2021-05-09 14:06 | PM.PN.1 ---
Subjective Subjective Date Patient Seen: 05/09/21 Time Patient Seen: 08:00 Interval history: He is feeling improved with no shortness of breath, lightheadedness, pain. Exam Vital Signs (past 8 hours): - 05/09/21 08:00 05/09/21 08:07 05/09/21 13:18 Temperature 99.7 F H 98.5 F Pulse Rate 88 87 Respiratory Rate 18 16 Blood Pressure 151/60 H 132/63 Pulse Oximetry 100 100 97 Oxygen Delivery Method Room Air Oxygen Flow Rate 0 Narrative Exam Narrative: GEN: no acute distress CV: regular rate and rhythm with no murmurs PULM: clear bilaterally, no wheezes, rhonchi, rales ABD: soft, nontender, nondistended, no organomegaly EXT: warm and well perfused with no edema NEURO: awake and alert with no focal deficits Objective Labs Result Diagrams: 05/09/21 06:48 05/09/21 06:48 Labs: Laboratory Results - last 24 hr 05/09/21 05/09/21 05/09/21 06:48 06:48 06:48 WBC 6.0 RBC 3.80 L Hgb 12.0 L Hct 34.7 L MCV 91.1 MCH 31.4 MCHC 34.5 RDW 13.6 Plt Count 122 L Neut % (Auto) 86.2 H Lymph % (Auto) 7.4 L [place] % (Auto) 5.6 Eos % (Auto) 0.5 L Baso % (Auto) 0.3 Neut # (Auto) 5200 Lymph # (Auto) 400 L [place] # (Auto) 300 Eos # (Auto) 0 Baso # (Auto) 0 Sodium 137 Potassium 3.8 Chloride 107 Carbon Dioxide 25 BUN 19 Creatinine 0.85 Estimated GFR > 60.0 BUN/Creatinine Ratio 22.4 H Glucose 100 Calcium 8.3 L Total Bilirubin 1.4 H AST 304 H ALT 141 H Alkaline Phosphatase 309 H D Total Creatine Kinase 515 H D Total Protein 5.5 L Albumin 2.9 L Globulin 2.6 Albumin/Globulin Ratio 1.1 [facility] Medical History (Updated 05/07/21 @ 02:32 by TOI Villalobos-) No chronic problems Surgical History Status post debridement of bone spur Status post hernia repair Social History household members: none Smoking Status: Never smoker Assessment & Plan Assessment & Plan narrative: Mr. Ennis is a 75M with H parkinsons who lives alone and was brought in to the ED after being found down for an undetermined amount of time. 1.Loss of consciousness, found down (undetermined amount of time), encephalopathy secondary to sepsis -WBC initially 20, but now resolved -Dark urine, urinalysis positive for bacteria -total CK 2589, improved with IV fluids -Head CT negative, MR head with no acute process -ECHO with no acute process 2. Rhabdomyolysis with MIRZA, resolved -MIRZA improved with IV fluids with creatinine down to 0.85 -CK down to 515, now need to trend further 3. Transaminitis -unclear etiology -possibly from rhabdo, vs medication effection -MRCP shows distended gallbladder but no other acute findings -continue to trend LFTs -stop statin, tylenol 4. Acute urinary retention with UTI and sepsis, improving -probable secondary to BPH and UTI -keep interiano in place for now -likely start flomax on dc, and follow up as with outpatient urology for interiano trial removal -urine culture negative, will plan to continue IV ceftriaxone for 5 day course 5. Parkinson's disease, acute on chronic, present on admission -continue patient's carbidopa-levodopa, Pimavanserin Time Spent With Patient Critical Care time: I spent a total of [] minutes of critical care time on this patient's care today; this time is exclusive of procedural time.
--- NOTE | 2021-05-09 22:03 | PC.NURSE ---
Patient is mostly oriented (stated day is May 09 or and day of week is Saturday). Speech is clear but he takes some time to respond and has difficulty finding words at times. Breath sounds CTA with RA sat of 99%. HRR. Denies nausea. BT present and had BM earlier today. Indwelling catheter is patent; urine is clear, dark yellow. Does have some bleeding around meatus and pericare was given. Is able to move self in bed. Is up with walker and 1 assist. Does not remember to call for staff assistance and can be impulsive; fall risk score is high and bed alarm is activated. Denies pain. Refused to use SCD's but is frequently moving self in bed.
[2021-05-10 00:32] VITALS: BP 152/65; PULSE 65; RESP 18; TEMP 36.9; O2SAT 93
[2021-05-10] MEDS: SODIUM CHLORIDE 0.9% 1,000 ML 80 ML IV (03:59)
[2021-05-10 05:53] VITALS: BP 154/63; PULSE 83; RESP 18; TEMP 36.9; O2SAT 96
[2021-05-10 06:16] LABS: Hematocrit 34.9 % (41-53); Mean Corpuscular HGB Conc 34.4 % (30-36); Mean Corpuscular Hemoglobin 31.3 PG (26-34); Mean Corpuscular Volume 90.9 fL (80-100); Platelet Count 146 X10^3/uL (150-400); Red Blood Cell Count 3.84 X10^6/uL (4.5-5.9); Red Cell Distribution Width 13.8 % (11.6-14.8); White Blood Cell Count 6.5 X10^3/uL (4.5-11.0)
[2021-05-10 06:23] LABS: Alanine Aminotransferase 102 IU/L (<50); Alkaline Phosphatase 339 U/L (38-126); Aspartate Aminotransferase 281 IU/L (17-59); BUN Creatinine Ratio 17.4 (6-22); Bilirubin Unconjugated 0.5 mg/dL (0.0-1.1); Blood Urea Nitrogen 15 mg/dL (9-20); Calcium 8.4 mg/dL (8.4-10.2); Carbon Dioxide 26 mmol/L (22-32); Chloride 106 mmol/L (98-107); Estimated Glomerular Filt Rate > 60.0 mL/min (>60); Glucose 97 mg/dL (80-110); Potassium 3.8 mmol/L (3.4-5.1); Sodium 138 mmol/L (137-145)
[2021-05-10 06:24] LABS: Albumin 2.9 g/dL (3.5-5.0); Globulin 2.8 g/dL (1.7-4.1); HEMOLYSIS < 15 (0-50); Total Protein 5.7 g/dL (6.3-8.2)
[2021-05-10] MEDS: Pimavanserin [Nuplazid] 34 mg capsule 34 EACH PO (08:48)
[2021-05-10] MEDS: CARBIDOPA-LEVODOPA 25/100 TABLET 1 EACH PO (08:49)
[2021-05-10] MEDS: ENOXAPARIN 40 MG/0.4 ML SYRINGE SUBCUT (08:49)
[2021-05-10] MEDS: MAGNESIUM HYDROXIDE 30 ML UDC PO (08:49)
[2021-05-10] MEDS: ASPIRIN EC 81 MG TABLET PO (08:49)
[2021-05-10] MEDS: cefTRIAXone 1,000 MG in SODIUM CHLORIDE 0.9% 100 ML 150 ML IV (08:50)
[2021-05-10 08:51] VITALS: O2SAT 98
[2021-05-10 10:00] VITALS: BP 133/65; PULSE 94; RESP 18; TEMP 37.7; O2SAT 99
--- NOTE | 2021-05-10 10:30 | P.DS_ITS ---
History of Present Illness History of Present Illness Date Patient Seen: 05/10/21 Time Patient Seen: 10:31 Chief complaint: GLF Narrative: Per Jazmin Gonzalez, SERVICE STATION OPERATOR-BC: ?Jj Ennis is a 75 yr old male with a history of parkinsons who lives alone and was brought in to the ED after being found down for an undetermined amount of time in his home by his neighbors.? He was actually supposed to go to lunch with his neighbors and he never made it.? Patient has no recall the events, and unable to provide any further information at this time.? He says he got up and had breakfast this morning and then he thinks he must have fallen.? No obvious head injury.? He was awake, alert, and responsive in ED. Upon admit he is unable to keep his eyes open, and appears confused, begins to answer questions, only to trail off into a mumble.?His RN contacted his daughter Ruby Ennis who verbalized that this is not his baseline. The patient is normally alert, orientated, independent, and very physically active. Due to acute confusion and parkinsons unable to obtain accurate HPI & ROS. He denies chest pain, SOB, abd pain, nausea, vomiting, headache, changes in vision, weakness, numbness, tingling, head injury, history of cardiac or pulmonary, palpitations, fever, body aches, or chills. EMS reports a glucose of 106. Upon admit to the unit patient's temp 98.7?, BP 101/51, HR 100, R 20, O2 saturation 100%.? The patient is resting comfortably in bed in no distress.? Neutrophilic leukocytosis- WBC 20, with a left shift neutrophils 19,200, HGB 12.8, HCT 38.3.? MIRZA-sodium 135, BUN 48, creatinine 1.74, glucose of 117 GFR 38.3 (prior labs in chart show normal Producer Assistant/GFR).? Rhabdomyolysis-dark urine, urinalysis positive for bacteria and sent for culture, total creatinine kinase 2589, CK-MB 9.84, initial troponin 0.018, lipase normal, procalcitonin 18.3.? Patient was bladder scanned in the ED and found to have 1700 cc of urinary retention, at which time Interiano catheter was placed.? GCS 14, patient meets SIRS and sepsis criteria, sofa score: 4.? Head CT demonstrated no acute intracranial processes although of note right sphenoid disease.? Chest x-ray demonstrated no acute cardiopulmonary processes.? Abdominal ultrasound was negative for any abnormal findings. EKG:Sinus rhythm rate 100, no ST changes no T-wave inversion. Patient admitted for loss of consciousness, found down, encephalopathy secondary to sepsis with rhabdomyolysis resulting in MIRZA likely secondary to urinary retention. Discharge Providers Provider Date of admission: 05/07/21 01:51 Discharge Date: 05/10/21 Primary care physician: Walker Altamirano MD Consults: 05/07/21 09:43 Consult to Occupational Therapy Evaluate & Treat Comment: Physician Instructions: Evaluate and treat Consult to Physical Therapy Evaluate & Treat Comment: Physician Instructions: Evaluate and Treat Discharge provider: Catracho Zavala DO Summary Hospital Course Discharge Diagnosis: Please see hospital course by problem list noted below. Hospital Course: Mr. Ennis is a 75M with [facility] parkinsons who lives alone and was brought in to the ED after being found down for an undetermined amount of time. 1.Loss of consciousness, found down (undetermined amount of time), acute metabolic encephalopathy secondary to sepsis, resolving -WBC initially 20, but now normal after initiation of antibiotics. -Dark urine, urinalysis positive for bacteria but cultures negative. Continue initially on ceftriaxone for presumed urinary source, change to oral cefdinir on discharge to complete total 7 day course. -MIRZA may be related to rhabdomyolysis or sepsis. Improved with IVF. Patient also with mild elevation in bilirubin and thrombocytopenia which improved with treatments. -Head CT negative, MR head with no acute process -ECHO with no acute process 2. Rhabdomyolysis with MIRZA, resolved -MIRAZ improved with IV fluids with creatinine down to 0.85. May be related to rhabdomyolysis or sepsis as noted above. -total CK 2589, improved with IV fluids. CK down to 515, no need to trend further after. 3. Transaminitis -unclear etiology -possibly from rhabdo or medications or sepsis -MRCP shows distended gallbladder but no other acute findings -transaminase levels improved, would recommend repeat evaluation in 1 week. -stopped tylenol. 4. Acute urinary retention with UTI and sepsis, improving -probable secondary to BPH and UTI -keep interiano in place for now -started flomax on discharge, and follow up as with outpatient urology for interiano trial removal -urine culture negative, complete antibiotics for 7 day course as above 5. Parkinson's disease, acute on chronic, present on admission -continue patient's carbidopa-levodopa, Pimavanserin Time Spent with Patient Time spent: Greater than 30 minutes Exam Vital Signs (past 8 hours): - 05/10/21 05:53 05/10/21 08:51 05/10/21 10:00 Temperature 98.4 F 99.8 F H Pulse Rate 83 94 H Respiratory Rate 18 18 Blood Pressure 154/63 H 133/65 Pulse Oximetry 96 98 99 Oxygen Delivery Method Room Air Oxygen Flow Rate 0 Narrative Exam Narrative: GEN: no acute distress CV: regular rate and rhythm with no murmurs PULM: clear bilaterally, no wheezes, rhonchi, rales ABD: soft, nontender, nondistended, no organomegaly EXT: warm and well perfused with no edema NEURO: awake and alert with no focal deficits Objective Labs Result Diagrams: 05/10/21 05:53 05/10/21 05:53 Labs: Laboratory Results - last 24 hr 05/09/21 05/10/21 05/10/21 06:48 05:53 05:53 WBC 6.5 RBC 3.84 L Hgb 12.0 L Hct 34.9 L MCV 90.9 MCH 31.3 MCHC 34.4 RDW 13.8 Plt Count 146 L Sodium 138 Potassium 3.8 Chloride 106 Carbon Dioxide 26 BUN 15 Creatinine 0.86 Estimated GFR > 60.0 BUN/Creatinine Ratio 17.4 Glucose 97 Calcium 8.4 Total Bilirubin 1.0 Conjugated Bilirubin 0.0 Unconjugated Bilirubin 0.5 AST 281 H ALT 102 H Alkaline Phosphatase 339 H Total Creatine Kinase 515 H D Total Protein 5.7 L Albumin 2.9 L Globulin 2.8 Albumin/Globulin Ratio 1.0 [facility] Medical History (Updated 05/07/21 @ 02:32 by TOI Villalobos-) No chronic problems Surgical History Status post debridement of bone spur Status post hernia repair Social History household members: none Smoking Status: Never smoker Discharge Plan Discharge Plan Patient Disposition: SNF Provider Discharge Comment: Mr. Ennis is a 75M with [facility] parkinsons who lives alone and was brought in to the ED after being found down for an undetermined amount of time. 1.Loss of consciousness, found down (undetermined amount of time), acute encephalopathy secondary to sepsis, resolving -WBC initially 20, but now normal after initiation of antibiotics. -Dark urine, urinalysis positive for bacteria but cultures negative. Continue on antibiotics for presumed urinary source -total CK 2589, improved with IV fluids -Head CT negative, MR head with no acute process -ECHO with no acute process 2. Rhabdomyolysis with MIRZA, resolved -MRIZA improved with IV fluids with creatinine down to 0.85 -CK down to 515, now need to trend further 3. Transaminitis -unclear etiology -possibly from rhabdo, vs medication effect -MRCP shows distended gallbladder but no other acute findings -transaminase levels improved, would recommend repeat evaluation in 1 week. -stopped statin, tylenol 4. Acute urinary retention with UTI and sepsis, improving -probable secondary to BPH and UTI -keep interiano in place for now -started flomax on dc, and follow up as with outpatient urology for interiano trial removal -urine culture negative, complete antibiotics for 7 day course as above 5. Parkinson's disease, acute on chronic, present on admission -continue patient's carbidopa-levodopa, Pimavanserin Discharge orders & Medications Prescriptions: New cefdinir 300 mg capsule 300 mg PO BID 4 Days Qty: 8 RF: 0 tamsulosin 0.4 mg capsule 0.4 mg PO BEDTIME 30 Days Qty: 30 RF: 0 Continued carbidopa-levodopa [Sinemet] 25-100 mg tablet 25 - 100 tab PO TID RF: 0 cholecalciferol (vitamin D3) [Vitamin D3] 50 mcg (2,000 unit) tablet 50 mcg PO DAILY RF: 0 Nuplazid 34 mg capsule 34 mg PO DAILY RF: 0 Follow up/Referrals: Walker Altamirano MD [Primary Care Provider] - Discharge Health Status Multidrug resistant organism: No MDRO Precautions: [place] Diet/Activity/Treatments Diet: Diet as Tolerated Activity: As tolerated Special Rehabilitation Services Reason for rehabilitation: Recovery r/t decondition Rehab type: Physical therapy and Occupational therapy Discharge Data Primary Care Provider: Walker Altamirano
--- NOTE | 2021-05-10 10:33 | PC.NURSE ---
Day shift: Temp of 99.[address] Zavala at approx 1025.
--- NOTE | 2021-05-10 10:50 | PT.IPTN ---
Current Diagnoses Retention of urine, unspecified (05/07/21) Physical Therapy Treatment Note M2 PT-IP Current Condition Start: 05/07/21 11:42 Freq: NEEDED Status: Active Protocol: Document 05/07/21 11:43 [facility] (Rec: 05/07/21 12:12 [facility] [id number]) Physical Therapy Current Condition Current Condition Evaluation Date 05/07/21 Treatment Diagnosis GLF, hx of parkinsons M3 PT-IP Subjective Start: 05/07/21 11:42 Freq: NEEDED Status: Active Protocol: Document 05/10/21 10:50 AW (Rec: 05/10/21 11:06 AW [email or web address]) Subjective Physical Therapy Visit Type Type Treatment Note Visit Start Time 10:23 Visit Stop Time 10:50 Total Visit Minutes 27 Number of CUSTOMER ACCOUNT REPRESENTATIVE Visits 0 Physical Therapy Visit Comments Patient Comments Pt willing to participate with PT Patient Goals Pt is fidgety, expresses interest in doing PT M4 PT-IP Mobility and Gait Start: 05/07/21 11:42 Freq: NEEDED Status: Active Protocol: Document 05/10/21 10:50 AW (Rec: 05/10/21 11:06 AW [id number]) PT-Bed Mobility Assessment Supine to Sit Supine to Sit Contact Guard Assistance Scooting Scooting to Edge of Bed Contact Guard Assistance PT-Transfer Assessment Sit to and From Stand Sit to and from Stand Standby Assistance,Contact Guard Assistance,Use of Upper Extremities Equipment Transfer Assistive Device Gait Belt,Front Wheeled Walker Orthotic/Prosthetic Devices or Brace: No Transfers Transfer Destination Chair Transfer Technique ambulated with FWW Transfer Ability Level of Assist Contact Guard Assistance Comments Mobility Comments Pt was in bed but restless as PT arrived. He agreed to get up, completing supine to sit SBA with CGA for initial steadiness in sitting. He stood CGA and ambulated around the unit a total of 220 feet with FWW SBA>CGA needed for turns and when prompted for increased speed. On return to the room, pt sat on the chair CGA and cues for safe descent. Pt was left with call light in hand, chair alarm on for safety. Gait Assessment Gait Gait Assistance Required: Standby Assistance,Contact Guard Assist,1 Person Assist Distance (Feet) 220 Assistive Devices Assistive Device Gait Belt,Front Wheeled Walker Orthotic/Prosthetic Devices or Brace: No Gait Deviations General Gait Pattern Decreased Stride Length, Decreased Feet Clearance, Festinating,Flexed Trunk Factors Limiting Gait Function Factors Limiting Gait Function Decreased Strength,Difficulty Following Directions,Poor Balance,Poor Safety Awareness Comments Gait Comments Focused on step length this date with pt able to maintain increased step length up to 20 feet but pt reverts to short shuffling steps with any distraction or cognitive load. Stair Climbing Assessment Evaluation Level of Assist On Stairs Contact Guard Assistance, Minimal Assistance Devices Stair Climbing Assistive Devices None Technique/Endurance Stair Climbing Direction Ascend and Descend Stair Climbing Technique Step Over Step Number of Steps Climbed 3 Comments Stair Climbing Comments No LOB this date but pt continues to need min assist and cues for foot clearance for safe descent. M5 PT-IP Objective Assessments Start: 05/07/21 11:42 Freq: NEEDED Status: Active Protocol: Document 05/07/21 11:43 [facility] (Rec: 05/07/21 12:12 [facility] [id number]) Gross Range of Motion Upper Extremity ROM Assessment Within Functional Limits Lower Extremity ROM Assessment Within Functional Limits Strength Upper Extremity Strength Assessment Within Functional Limits Lower Extremity Strength Assessment Within Functional Limits Comments Strength Comments there is tremors present with MMT for knee flexion and knee extension, pt able to hold resistance despite tremor M6 PT-IP Treatment Start: 05/07/21 11:42 Freq: NEEDED Status: Active Protocol: Document 05/10/21 10:50 AW (Rec: 05/10/21 11:06 AW [id number]) Physical Therapy Treatment Education Education Provided Safety Other Treatments Other Treatment Performed Sit to stand x 8. No UE support with focus on increased anterior weight shift. M7 PT-IP Assessment and Plan Start: 05/07/21 11:42 Freq: NEEDED Status: Active Protocol: Document 05/10/21 10:50 AW (Rec: 05/10/21 11:06 AW [id number]) PT Summary Assessment and Plan Summary Progress Towards Goals Slow Progress due to Medical Issues,Slow Progress - Other Assessment Summary Pt's step lengths are inconsistent. He is stimulable with suggestion for longer step lengths but revers to short shuffling steps with any distraction, change in surface type, or cognitive load. Pt's safety awareness remains low, making return home without assist unsafe. Pt would benefit from subacute therapy and / assist with all mobility to improve strength and mobility independence. Goals Bed Mobility Goal Standby Assistance Transfer Goal Standby Assistance Gait Goal Standby Assistance,Front Wheel Walker Gait Distance 150 feet Other Goals pt is able to ambulate up 2-4 stairs safely with SBA Days to Meet Goals 5 Frequency of Treatment Frequency Of Treatment Once a Day Treatment Plan Physical Therapy Treatment Plan Bed Mobility Training,Transfer Training,Gait Training Other Recommendations and Next Treatment reinforce gait training with Focus FWW; stairs Precautions Other Precautions falls Discharge Recommendations PT Discharge Recommendations SNF Rehab,Home vs SNF Other Discharge Recommendations fww for home use, DIL will obtain Transportation Needs at Discharge Private Vehicle
--- NOTE | 2021-05-10 10:52 | CM.DPC ---
DCP Discharge SNF Per MD, pt is improving and not resolved in his symptoms yet for encephalopathy and UTI and his labs are improving and medically stable to d/c to SNF rehab. JOSE FRANCISCO called pt's contact Dtr Ruby in [place] and updated on pt status and plan of [facility] today and discussed that pt is improving but not resolved and therefore Medicare will skill pt for rehab but likely not too long and Dtr acknowledges understanding and plans to remain in close contact with [facility] as she wants close oversight with his interiano cath care to reduce risk of further infection and plans to schedule an appointment outpt with [facility]. Dtr plans to still refill pt's home med of Nuplazid as pt currently has this in the hospital for use and SW confirmed with RN that he has about 10-12 pills remaining and aware it needs to go with pt at d/c to SNF. JOSE FRANCISCO called [facility] admissions and discussed d/c and confirmed they can accept pt today around 1300 and need his home med Nuplazid and they already have copy of COVID vaccine card but need updated COVID neg swab today. JAEL Curtis kindly faxing d/c packet to December at [facility] for review. RN aware of need for COVID swab and 1300 transport. 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 Plan: Patient to d/c to [facility] today around 1300 via w/c van prior to safe d/c with family assist. JOSHUA Delcid
--- NOTE | 2021-05-10 11:30 | OT.IP.TRT ---
Current Diagnoses Retention of urine, unspecified (05/07/21) Occupational Therapy Treatment Note M2 OT-IP Current Condition Start: 05/08/21 11:44 Freq: Status: Active Protocol: Document 05/08/21 11:44 [facility] (Rec: 05/08/21 12:00 [facility] [id number]) Occupational Therapy Current Condition Current Condition Evaluation Date 05/08/21 Treatment Diagnosis found down, sepsis, rhabdo with MIRZA, UTI Diagnosis Onset Date 05/07/21 M3 OT- IP Subjective and Pain Start: 05/08/21 11:44 Freq: Status: Active Protocol: Document 05/10/21 11:46 [facility] (Rec: 05/10/21 11:53 [facility] [id number]) OT- Subjective Occupational Therapy Visit Type Type Treatment Note Visit Start Time 10:50 Visit Stop Time 11:30 Total Visit Minutes 40 Occupational Therapy Visit Comments Patient Comments Pt agreed to shower. Patient/Caregiver Goals To go to skilled rehab. OT Pain Assessment Pain When Pain Assessed At Rest Pain Present Pain Present Denied Pain M4 OT- IP ADL's Start: 05/08/21 11:44 Freq: Status: Active Protocol: Document 05/10/21 11:46 [facility] (Rec: 05/10/21 11:53 [facility] [id number]) OT TUD-Ndzd-Zztbtid General Evaluation Self-Feeding Ability Independent OT ADL-Grooming General Evaluation Grooming Ability Independent Comments OT Grooming Comments Independent while seated in the recliner. OT ADL-Dressing General Eval Lower Body Dressing Ability Standby Assistance Areas Needing Assistance Socks Comments OT Dressing Comments Pt able to arron/doff socks on his own while seated. OT ADL-Toileting Comments OT Toileting Comments Patel in place. OT ADL-Bathing Bathing Type Bathing Type Shower General Evaluation Bathing Ability Minimal Assistance Areas Needing Assistance Wash/Dry Back Comments OT Bathing Comments Pt able to do most of his showering while seated and able to stand with close SBA in order for pt to do his pericare needs. M6 OT- IP Functional Cognition Start: 05/08/21 11:44 Freq: Status: Active Protocol: Document 05/10/21 11:46 [facility] (Rec: 05/10/21 11:53 [facility] [id number]) Cognitive Factors Limiting Selfcare Function Cognitive Ability Level of Alertness Alert Cognitive Comments Cognitive Assessment Comments Pt needing SOPHIA vc to help sequence through showering needs. Pt needing concrete simple commands to follow. M7 OT- IP Mobility and Balance Start: 05/08/21 11:44 Freq: Status: Active Protocol: Document 05/10/21 11:46 [facility] (Rec: 05/10/21 11:53 [facility] [id number]) OT-Transfer Assessment Sit to and From Stand Sit to and from Stand Contact Guard Assistance Transfers Transfer Ability Contact Guard Assistance, Minimal Assistance Technique Transfer Destination Chair,Shower Stall Transfer Technique Stand Step Pivot Devices Transfer Assistive Devices Gait Belt,Front Wheeled Walker Comments Mobility Comments CGA with FWW in the room and SOPHIA for steadying while stepping over the threshold of the shower. OT- Balance Assessment Sitting Balance and Reactions Static Sitting Balance Ability Good Dynamic Sitting Balance Ability Good Standing Balance and Reactions Static Standing Balance Ability Fair M8 OT- IP Objective Assessments Start: 05/08/21 11:44 Freq: Status: Active Protocol: Document 05/08/21 11:44 [facility] (Rec: 05/08/21 12:00 [facility] [id number]) OT Gross Range of Motion Upper Extremity Range of Motion Assessment Within Functional Limits OT Strength Upper Extremity Strength Assessment Within Functional Limits Comments Strength Comments grossly 4+/5 OT- Coordination Assessment Upper Extremity Finger to Nose Test Within Functional Limits Finger Tapping Test Bilateral UE Impaired Comments Coordination Comments Poor coordination for thumb to finger OT-Muscle Tone Assessment Muscle Tone WNL Yes OT Sensation Assessment Edema Edema Absent M9 OT- IP Assessment and Plan Start: 05/08/21 11:44 Freq: Status: Active Protocol: Document 05/10/21 11:46 [facility] (Rec: 05/10/21 11:53 [facility] [id number]) OT Summary Assessment and Plan Potential Rehabilitation Potential Excellent Analytic Complexity at Evaluation Moderate Summary OT Impairments Balance,Coordination, Functional Cognition, Functional Mobility,Grooming, Dressing,Toileting,Bathing, Toilet Transfers,Shower Transfers,Activity Tolerance Progress Towards Goals Progressing Toward Goals Assessment Summary Pt follow commands better, steadier on his feet , and able to participate in a shower today. Pt to go to skilled rehab today. Goals Self-Feeding Goal Independent Grooming Goal Independent Dressing Goal Independent Toileting Goal Independent Bathing Goal Independent Toilet Transfer Goal Independent Shower Transfer Goal Independent Days to Meet Goals 9 Frequency of Treatment Frequency Of Treatment Once a Day Treatment Plan OT Treatment Plan ADL Training,Functional Cognition Training,Functional Mobility,Patient/Family Education,Discharge Planning Discharge Recommendations OT Discharge Recommendations SNF Rehab Transportation Needs at Discharge Wheelchair/Cabulance
[2021-05-10 11:45] VITALS: O2SAT 95
--- NOTE | 2021-05-10 12:01 | PC.NURSE ---
Day shift: Report given to Clementina at [facility] at approx 1200. All questions answered.
[2021-05-10 12:30] LABS: COVID19 -Nasal RAPID Negative (Negative)
--- NOTE | 2021-05-10 12:42 | PC.NURSE ---
Day shift: Covid19 neg per lab results at approx 1230. Patel to remain in place on d/c per Dr Zavala.
--- NOTE | 2021-05-10 13:06 | PC.NURSE ---
Day shift: Pt left unit and headed to [facility] across the street at approx 1300. He has all personal belongings. Home med bottle is in his canvas bag. Diego remains patent with good output. Pt had shower today with the help of OT.
--- NOTE | 2021-05-10 14:18 | CM.DPNOTE ---
Late entry: Faxed DC summary, signed med list, order and covid lab result to [facility] and received fax conf. Gave to RN report to HEATHER Mays, #[phone] [facility]. Kirsten Lewis CM Asst.
== END 2021-05-10 13:09 | DRG 871 ==
LOC: ED 05-07 01:50 → AC 05-07 01:53
PROVIDERS: Internal Medicine; Admitting Provider Nurse Practitioner Family; Emergency Provider Emergency Medicine; PCP Internal Medicine; Referring Provider Emergency Medicine; Visit Provider Nurse Practitioner Family
DX: A41.9 Sepsis, unspecified organism (principal); G93.41 Metabolic encephalopathy; N17.9 Acute kidney failure, unspecified; M62.82 Rhabdomyolysis; N39.0 Urinary tract infection, site not specified; R33.9 Retention of urine, unspecified; G20 Parkinson's disease; E80.6 Other disorders of bilirubin metabolism; D69.59 Other secondary thrombocytopenia; N40.1 Benign prostatic hyperplasia with lower urinary tract symptoms; Z20.822 Contact with and (suspected) exposure to COVID-19
CPT/HCPCS: 36415; 70450; 70548; 70553; 71045; 74176; 74181; 76705; 76770; 80048; 80053; 80061; 80076; 81001; 82550; 82553; 82962; 83036; 83605; 83690; 83735; 83880; 84100; 84145; 84484; 85025; 85027; 85610; 85730; 87040; 87086; 87635; 93005; 93306; 94760; 96365; 97110; 97116; 97129; 97130; 97162; 97166; 97530; 97535; 99284; 99285; C9803; J0696; J1650; J2543